=== PATIENT | male | born 1990 | race African-American/Black ===

== ENCOUNTER 2017-10-11 09:10 | Inpatient (IN) | payer OTHER ==
[2017-10-11 09:39] VITALS: BMI 35.2
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
[2017-10-11] MEDS ORDERED: ACETAMINOPHEN 325 MG TABLET (FP) PO PRN (11:58)
[2017-10-11] MEDS ORDERED: NICOTINE POLACRILEX 4 MG GUM BUC PRN (11:58)
[2017-10-11] MEDS ORDERED: guaiFENesin/D-METHORPHAN HB 10 ML UNIT-DOSE CUPS PO PRN (11:58)
[2017-10-11] MEDS ORDERED: P-EPHED 60MG/TRIPROLIDI 2.5MG TABLET PO PRN (11:58)
[2017-10-11] MEDS ORDERED: IBUPROFEN 400 MG TABLET (FP) PO PRN (11:58)
[2017-10-11] MEDS ORDERED: MENTHOL/PHENOL 1 EACH UD MM PRN (11:58)
[2017-10-11] MEDS ORDERED: hydrOXYzine PAMOATE 50 MG CAPSULE (FP) PO PRN (11:58)
[2017-10-11] MEDS ORDERED: MAG HYDROX/AL HYDROX/SIMETH 30 ML UNIT-DOSE CUP PO PRN (11:58)
[2017-10-11] MEDS ORDERED: LOPERAMIDE HCL 2 MG CAPSULE PO PRN (11:58)
[2017-10-11] MEDS ORDERED: MAGNESIUM CITRATE 300 ML BOTTLE PO PRN (11:58)
[2017-10-11] MEDS ORDERED: MAGNESIUM HYDROX 2400MG/30ML ORAL SUSPENSION 30 ML CUP PO PRN (11:58)
[2017-10-11] MEDS ORDERED: METHADONE HCL 10 MG TABLET (FOR DETOX USE ONLY) PO ONE ×2 (12:38→23:00)
[2017-10-11 17:30] LABS: URINE APPEARANCE CLEAR; URINE BILIRUBIN NEGATIVE (NEGATIVE); URINE BLOOD NEGATIVE (NEGATIVE); URINE COLOR YELLOW; URINE GLUCOSE (UA) NEGATIVE (NEGATIVE); URINE KETONE NEGATIVE (NEGATIVE); URINE LEUK ESTERASE NEGATIVE (NEGATIVE); URINE NITRITE NEGATIVE (NEGATIVE); URINE PROTEIN NEGATIVE (NEGATIVE); URINE UROBILINOGEN NEGATIVE mg/dL (0.2-1.0)
[2017-10-11] MEDS: THIAMINE HCL 100 MG TABLET (FP) PO SCH (22:40)
[2017-10-12] MEDS ORDERED: METHADONE HCL 5 MG TABLET (FOR DETOX USE ONLY) PO ONE (10:00)
[2017-10-12 10:11] LABS: HEMATOCRIT 41.5 % (35.4-49); HEMOGLOBIN 14.1 GM/dL (11.7-16.9); MCH 30.7 pg (25.7-33.7); MCHC 34.1 g/dl (32.0-35.9); MEAN CELL VOLUME 90.2 fl (80-96); MEAN PLT VOLUME 10.1 fl (7.5-11.1); PLATELET COUNT 241 K/MM3 (134-434); RDW 13.3 % (11.9-15.9)
[2017-10-12 10:17] LABS: CHLORIDE 103 mmol/L (98-107); POTASSIUM 3.8 mmol/L (3.5-5.1); SODIUM 139 mmol/L (136-145)
[2017-10-12] MEDS: NICOTINE 21 MG/24 HOURS TOPICAL PATCH TD SCH (10:20)
[2017-10-12] MEDS: PRENATAL VITAMINS W/ FOLIC ACID TABLET (FP) PO SCH (10:20)
--- NOTE | 2017-10-12 10:32 | EKG ---
Test Reason : Blood Pressure : / mmHG Vent. Rate : 072 BPM Atrial Rate : 072 BPM P-R Int : 136 ms QRS Dur : 088 ms QT Int : 382 ms P-R-T Axes : 075 069 -37 degrees QTc Int : 418 ms NORMAL SINUS RHYTHM NONSPECIFIC ST AND T WAVE ABNORMALITY ABNORMAL ECG NO PREVIOUS ECGS AVAILABLE Confirmed by ALDEN SANDHU MD ([id number]) on 10/12/2017 10:31:43 AM Referred By: Confirmed By:ALDEN SANDHU MD
[2017-10-12 10:34] LABS: ALBUMIN 4.3 g/dl (3.4-5.0); ALK PHOS 64 U/L (45-117); ANION GAP 9 (8-16); BILIRUBIN,TOTAL 0.7 mg/dL (0.2-1.0); BLOOD UREA NITROGEN 24 mg/dL (7-18); CALCIUM 8.5 mg/dL (8.5-10.1); CO2 27 mmol/L (21-32); CREATININE 0.9 mg/dL (0.7-1.3); GLUCOSE,RANDOM 117 mg/dL (74-106); SGOT/AST 28 U/L (15-37); SGPT/ALT 46 U/L (12-78); TOT PROT 7.7 g/dl (6.4-8.2)
--- NOTE | 2017-10-12 12:48 | PN ---
BHS COWS - Scale Resting Pulse: 0= [place] 80 or Below Sweatin= Chills/Flushing Restless Observation: 0= Sits Still Pupil Size: 0= Normal to Room Light Bone or Joint Aches: 2= Severe Diffuse Aches Runny Nose/ Eye Tearin= None GI Upset > 30mins: 1= Stomach Cramp Tremor Observation of Outstretched Hands: 2= Slight Tremor Visible Yawning Observation: 1= 1-2x During Session Anxiety or Irritability: 2=Irritable/Anxious Goose Flesh Skin: 3=Piloerection COWS Score: 12 BHS Progress Note (SOAP) Subjective: Sweating, Tremors, Body Aches, Interrupted Sleep. Objective: PATIENT A & O X 3, OBSERVED AMBULATING ON UNIT. NO ACUTE DISTRESS. 10/12/17 13:13 Vital Signs Temperature 98.4 F 10/12/17 09:28 Pulse Rate 58 L 10/12/17 09:28 Respiratory Rate 18 10/12/17 09:28 Blood Pressure 117/73 10/12/17 09:28 O2 Sat by Pulse Oximetry (%) Laboratory Tests 10/11/17 10/11/17 10/12/17 11:55 16:30 05:45 WBC 6.0 RBC 4.60 Hgb 14.1 Hct 41.5 MCV 90.2 MCH 30.7 MCHC 34.1 RDW 13.3 Plt Count 241 MPV 10.1 Sodium Potassium Chloride Carbon Dioxide Anion Gap BUN Creatinine Creat Clearance w eGFR Random Glucose Calcium Total Bilirubin AST ALT Alkaline Phosphatase Total Protein Albumin Urine Color Yellow Urine Appearance Clear Urine pH 6.0 Ur Specific [place] 1.027 Urine Protein Negative Urine Glucose (UA) Negative Urine Ketones Negative Urine Blood Negative Urine Nitrite Negative Urine Bilirubin Negative Urine Urobilinogen Negative Ur Leukocyte Esterase Negative HIV 1&2 Antibody Screen Negative HIV P24 Antigen Negative 10/12/17 05:45 WBC RBC Hgb Hct MCV MCH MCHC RDW Plt Count MPV Sodium 139 Potassium 3.8 Chloride 103 Carbon Dioxide 27 Anion Gap 9 BUN 24 H Creatinine 0.9 Creat Clearance w eGFR > 60 Random Glucose 117 H Calcium 8.5 Total Bilirubin 0.7 AST 28 ALT 46 Alkaline Phosphatase 64 Total Protein 7.7 Albumin 4.3 Urine Color Urine Appearance Urine pH Ur Specific [place] Urine Protein Urine Glucose (UA) Urine Ketones Urine Blood Urine Nitrite Urine Bilirubin Urine Urobilinogen Ur Leukocyte Esterase HIV 1&2 Antibody Screen HIV P24 Antigen LABS NOTED. RPR RESULT PENDING. 10/12/17 13:17 Assessment: 10/12/17 13:14 WITHDRAWAL SYMPTOMS. Plan: CONTINUE DETOX. INCREASE DAILY PO FLUID INTAKE.
[2017-10-12] MEDS: diazePAM 5 MG TABLET PO PRN (22:46)
[2017-10-12] MEDS: THIAMINE HCL 100 MG TABLET (FP) PO SCH (22:46)
[2017-10-13] MEDS ORDERED: METHADONE HCL 10 MG TABLET (FOR DETOX USE ONLY) PO ONE (10:00)
[2017-10-13] MEDS: NICOTINE 21 MG/24 HOURS TOPICAL PATCH TD SCH (10:30)
[2017-10-13] MEDS: PRENATAL VITAMINS W/ FOLIC ACID TABLET (FP) PO SCH (10:30)
--- NOTE | 2017-10-13 14:12 | PN ---
BHS COWS - Scale Resting Pulse: 0= MD 80 or Below Sweatin= Chills/Flushing Restless Observation: 1= Difficult to Sit Still Pupil Size: 0= Normal to Room Light Bone or Joint Aches: 1= Mild Discomfort Runny Nose/ Eye Tearin= None GI Upset > 30mins: 1= Stomach Cramp Tremor Observation of Outstretched Hands: 2= Slight Tremor Visible Yawning Observation: 2= >3x During Session Anxiety or Irritability: 2=Irritable/Anxious Goose Flesh Skin: 0=Smooth Skin COWS Score: 10 BHS Progress Note (SOAP) Subjective: Sweating, Tremors, Fatigue, Interrupted Sleep. Objective: PATIENT A & O X 3, OBSERVED AMBULATING ON UNIT. NO ACUTE DISTRESS. 10/13/17 14:11 Vital Signs Temperature 96.1 F L 10/13/17 13:46 Pulse Rate 62 10/13/17 13:46 Respiratory Rate 18 10/13/17 13:46 Blood Pressure 120/76 10/13/17 13:46 O2 Sat by Pulse Oximetry (%) Laboratory Tests 10/11/17 10/11/17 10/12/17 11:55 16:30 05:45 WBC 6.0 RBC 4.60 Hgb 14.1 Hct 41.5 MCV 90.2 MCH 30.7 MCHC 34.1 RDW 13.3 Plt Count 241 MPV 10.1 Sodium Potassium Chloride Carbon Dioxide Anion Gap BUN Creatinine Creat Clearance w eGFR Random Glucose Calcium Total Bilirubin AST ALT Alkaline Phosphatase Total Protein Albumin Urine Color Yellow Urine Appearance Clear Urine pH 6.0 Ur Specific [place] 1.027 Urine Protein Negative Urine Glucose (UA) Negative Urine Ketones Negative Urine Blood Negative Urine Nitrite Negative Urine Bilirubin Negative Urine Urobilinogen Negative Ur Leukocyte Esterase Negative RPR Titer HIV 1&2 Antibody Screen Negative HIV P24 Antigen Negative 10/12/17 10/12/17 05:45 05:45 WBC RBC Hgb Hct MCV MCH MCHC RDW Plt Count MPV Sodium 139 Potassium 3.8 Chloride 103 Carbon Dioxide 27 Anion Gap 9 BUN 24 H Creatinine 0.9 Creat Clearance w eGFR > 60 Random Glucose 117 H Calcium 8.5 Total Bilirubin 0.7 AST 28 ALT 46 Alkaline Phosphatase 64 Total Protein 7.7 Albumin 4.3 Urine Color Urine Appearance Urine pH Ur Specific [place] Urine Protein Urine Glucose (UA) Urine Ketones Urine Blood Urine Nitrite Urine Bilirubin Urine Urobilinogen Ur Leukocyte Esterase RPR Titer Nonreactive HIV 1&2 Antibody Screen HIV P24 Antigen LABS NOTED. Assessment: 10/13/17 14:11 WITHDRAWAL SYMPTOMS. Plan: CONTINUE DETOX. INCREASE DAILY PO FLUID INTAKE.
[2017-10-13] MEDS: THIAMINE HCL 100 MG TABLET (FP) PO SCH (22:22)
[2017-10-13] MEDS: diazePAM 5 MG TABLET PO PRN (22:23)
[2017-10-14] MEDS ORDERED: METHADONE HCL 5 MG TABLET (FOR DETOX USE ONLY) PO ONE (06:00)
[2017-10-14 06:21] VITALS: BP 130/70; PULSE 61; TEMP 96.7
--- NOTE | 2017-10-14 11:36 | DS ---
[facility] Detox Discharge Summary Admission Date: 10/11/17 - History Present History: Opioid Dependence Pertinent Past History: Denies - Physical Exam Results Vital Signs: Vital Signs Temperature 96.7 F L 10/14/17 06:20 Pulse Rate 61 10/14/17 06:20 Respiratory Rate 18 10/14/17 06:20 Blood Pressure 130/70 10/14/17 06:20 O2 Sat by Pulse Oximetry (%) Pertinent Admission Physical Exam Findings: Withdrawal symptoms Laboratory Tests 10/11/17 10/11/17 10/12/17 11:55 16:30 05:45 WBC 6.0 RBC 4.60 Hgb 14.1 Hct 41.5 MCV 90.2 MCH 30.7 MCHC 34.1 RDW 13.3 Plt Count 241 MPV 10.1 Sodium Potassium Chloride Carbon Dioxide Anion Gap BUN Creatinine Creat Clearance w eGFR Random Glucose Calcium Total Bilirubin AST ALT Alkaline Phosphatase Total Protein Albumin Urine Color Yellow Urine Appearance Clear Urine pH 6.0 Ur Specific [place] 1.027 Urine Protein Negative Urine Glucose (UA) Negative Urine Ketones Negative Urine Blood Negative Urine Nitrite Negative Urine Bilirubin Negative Urine Urobilinogen Negative Ur Leukocyte Esterase Negative RPR Titer HIV 1&2 Antibody Screen Negative HIV P24 Antigen Negative 10/12/17 10/12/17 05:45 05:45 WBC RBC Hgb Hct MCV MCH MCHC RDW Plt Count MPV Sodium 139 Potassium 3.8 Chloride 103 Carbon Dioxide 27 Anion Gap 9 BUN 24 H Creatinine 0.9 Creat Clearance w eGFR > 60 Random Glucose 117 H Calcium 8.5 Total Bilirubin 0.7 AST 28 ALT 46 Alkaline Phosphatase 64 Total Protein 7.7 Albumin 4.3 Urine Color Urine Appearance Urine pH Ur Specific [place] Urine Protein Urine Glucose (UA) Urine Ketones Urine Blood Urine Nitrite Urine Bilirubin Urine Urobilinogen Ur Leukocyte Esterase RPR Titer Nonreactive HIV 1&2 Antibody Screen HIV P24 Antigen Labs noted - Treatment Hospital Course: Detox Protocol Followed, Detoxed Safely, Responded well, Discharged Condition Good - Medication Discharge Medications: Ambulatory Orders NK [No Known Home Medication] 10/11/17 - Diagnosis (1) Nicotine dependence Status: Chronic Qualifiers: Nicotine product type: cigarettes Substance use status: uncomplicated Qualified Code(s): F17.210 - Nicotine dependence, cigarettes, uncomplicated (2) Opioid dependence with withdrawal Status: Acute - AMA Did Patient Leave Against Medical Advice: No (Follow up with your PCP in 1-2 weeks)
== END 2017-10-14 06:48 | disposition home or self-care (01) | DRG 773 ==
LOC: YASAS 09:10 → Y3N 12:09
PROVIDERS: ADMIT Internal Medicine; ATTEND Internal Medicine
PROC: HZ2ZZZZ Detoxification Services for Substance Abuse Treatment (ICD-10-PCS; principal; 2017-10-11)
DX: F11.23 Opioid dependence with withdrawal (principal); F17.210 Nicotine dependence, cigarettes, uncomplicated
CPT/HCPCS: 36415; 80053; 81003; 85027; 86593; 87389; 93005; 93010

== ENCOUNTER 2019-10-19 18:23 | Emergency (ER) | payer OTHER ==
[2019-10-19 18:31] VITALS: BP 123/81; PULSE 114; TEMP 98.8; BMI 30.7
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
[2019-10-19] MEDS ORDERED: ACETAMINOPHEN 500 MG TABLET (FP) PO ONE (19:25)
[2019-10-19] MEDS ORDERED: ACETAMINOPHEN 500 MG TABLET (FP) ONE (19:29)
[2019-10-19] MEDS ORDERED: IBUPROFEN 400 MG TABLET (FP) PO ONE ×2 (19:32→19:35)
== END 2019-10-19 19:41 | disposition home or self-care (01) ==
LOC: JERFT 18:23
DX: S20.212A Contusion of left front wall of thorax, initial encounter (principal); S00.03XA Contusion of scalp, initial encounter; S50.12XA Contusion of left forearm, initial encounter; Y04.2XXA Assault by strike against or bumped into by another person, initial encounter; Y93.89 Activity, other specified; Y92.89 Other specified places as the place of occurrence of the external cause
CPT/HCPCS: 70450-TC; 71101-TC-LT-FY; 73090-TC-LT-FY; 73110-TC-LT-FY; 99284-25

== ENCOUNTER 2019-11-02 13:19 | Emergency (ER) | payer OTHER ==
[2019-11-02 13:30] VITALS: BMI 33.5
[2019-11-02] MEDS ORDERED: SODIUM CHLORIDE 0.9% 500 ML INFUS.BAG IV ONE (14:00)
--- NOTE | 2019-11-02 14:38 | PDOC ---
Attending Attestation - Resident Resident Name: Jai Murphy - ED Attending Attestation I have performed the following: I have examined & evaluated the patient, The case was reviewed & discussed with the resident, I agree w/resident's findings & plan, Exceptions are as noted - HPI HPI: 11/07/19 16:10 29 years old type 2 diabetes with polyuria polydipsia. He has been incarcerated was supposed to take metformin but has not taken any medications has not followed up since being discharged. No fever no chills no belly pain no nausea no vomiting no diarrhea - Physicial Exam PE: 11/07/19 16:10 Vitals: Triage Vital signs reviewed General Appearance: No acute distress, well nourished well developed, Cardiac: Regular rate and rhythym, no murmurs, no rubs, no gallops, Lungs: Clear to auscultation bilateral, good air movement bilaterally, Abdomen: Soft, non distended, normal bowel sounds, non tender to palpation Extremities: Full range of motion to all extremities, no cyanosis, clubbing, or edema Skin: Warm and dry, no rashes or lesions, no rash, no petechiae Psych: Normal mood, normal affect - Medical Decision Making 11/07/19 16:10 Well-appearing no apparent distress no signs of DKA no anion gap feels better after IV fluids will restart metformin and have patient follow-up in clinic Findings, the need for follow-up and strict return instructions discussed with patient. 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 We have evaluated you and have found no emergency problems that need treatment. At home, eat a diet low in carbohydrates, stay hydrated with diet or low sugar drinks, and try to exercise and stay healthy. A referral to out clinic has been given to follow-up on your blood sugar and start on other medications as needed. We have sent a pre scription for metformin, please take it as instructed. Check your blood sugar in the morning, and aim for a level <200 throughout the day, but never let it drop below 60. If it does, eat something with sugar in it like juice or soda. If you experience fever, chills, nausea, vomiting, chest pain, difficulty breathing, abdominal pain, or any other new or concerning symptoms, please return to the emergency room. - Post Discharge Activity
[2019-11-02 14:44] LABS: BASO % 0.4 % (0-2.0); EOS % 2.2 % (0-4.5); HEMOGLOBIN 14.6 GM/dL (11.7-16.9); LYMPH % 23.9 % (8-40); MCH 29.6 pg (25.7-33.7); MCHC 33.8 g/dl (32.0-35.9); MEAN CELL VOLUME 87.4 fl (80-96); MEAN PLT VOLUME 10.8 fl (7.5-11.1); MONO % 7.2 % (3.8-10.2); NEUT % 66.3 % (42.8-82.8); PLATELET COUNT 185 K/MM3 (134-434); RBC 4.93 M/mm3 (4.00-5.60); RDW 12.9 % (11.9-15.9); WHITE BLOOD COUNT 6.4 K/mm3 (4.0-10.0)
--- NOTE | 2019-11-02 14:44 | PDOC ---
History of Present Illness - General Chief Complaint: Blood Sugar Problem Stated Complaint: DIAB Time Seen by Provider: 11/02/19 13:34 History Source: Patient Exam Limitations: No Limitations - History of Present Illness Initial Comments: 11/02/19 14:39 Hari Rg is a 29M with PMH recently diagnosed T2DM presenting with hyperglycemia. Denies any covid-19 exposures or sick contacts, diligently isolating himself and wearing PPE. Patient was previously incarcerated 8 months ago, was seen by health staff in [facility] and diagnosed with T2DM, started on metformin. Once released from [facility], told he did not need to take metformin any more. Has not followed up with any primary doctor, but checks he BGM at home and has glucose ~90s normally. Today took BGM and machine said it was too high to read, came to ED. Reports polyuria, polydipsia, increased thirst, blurry vision changes, but no neuropathy. Denies hematuria or dysuria. Denies fever, chills, N/V/C/D, chest pain, SOB, abdominal pain, dizziness. Last at a pizza last night, nothing today. Ambulatory without issues. NKDA No other PSH Smokes 0.5 ppd, denies alcohol/drugs Past History - Past Medical History Allergies/Adverse Reactions: Allergies Allergy/AdvReac Type Severity Reaction Status Date / Time No Known Allergies Allergy Verified 11/02/19 13:28 Home Medications: Ambulatory Orders metFORMIN HCL [Metformin HCl] 500 mg PO BID #60 tablet 11/02/19 Anemia: No Asthma: No Cancer: No Cardiac Disorders: No CVA: No COPD: No CHF: No Dementia: No Diabetes: No GI Disorders: No Disorders: No HTN: No Hypercholesterolemia: No Kidney Stones: No Liver Disease: No Seizures: No Thyroid Disease: No - Surgical History Abdominal Surgery: No Appendectomy: No Cardiac Surgery: No Cholecystectomy: No Lung Surgery: No Neurologic Surgery: No Orthopedic Surgery: No - Reproductive History Testicular Surgery: No - Psycho Social/Smoking Cessation Hx Smoking History: Current every day smoker Have you smoked in the past 12 months: Yes Number of Cigarettes Smoked Daily: 10 Information on smoking cessation initiated: No 'Breaking Loose' booklet given: 10/11/17 Drug/Substance Use Hx: Yes Substance Use Type: Opiates Hx Substance Use Treatment: No Review of Systems - Review of Systems Able to Perform ROS?: Yes Constitutional: No: Symptoms Reported HEENTM: Yes: Recent change in vision Respiratory: No: Symptoms reported Cardiac (ROS): No: Symptoms Reported ABD/GI: No: Symptoms Reported : Yes: Frequency. No: Burning, Dysuria, Discharge, Flank Pain, Hematuria, Incontinence, Pain, Urgency Musculoskeletal: No: Symptoms Reported Integumentary: No: Symptoms Reported Neurological: No: Symptoms reported Endocrine: No: Symptoms Reported Hematologic/Lymphatic: No: Symptoms Reported All Other Systems: Reviewed and Negative *Physical Exam - Vital Signs Last Vital Signs Temp Pulse Resp BP Pulse Ox 98.5 F 77 18 120/74 98 11/02/19 13:25 11/02/19 13:25 11/02/19 13:25 11/02/19 13:25 11/02/19 13:25 - Physical Exam General Appearance: Yes: Nourished, Appropriately Dressed, Obese. No: Apparent Distress HEENT: positive: EOMI, LAKESHA, Normal Voice, Symmetrical, Pharynx Normal, Hearing Grossly Normal. negative: Scleral Icterus (R), Scleral Icterus (L), Pharyngeal Erythema, Tonsillar Exudate, Tonsillar Erythema Neck: positive: Trachea midline, Normal Thyroid, Supple. negative: Tender, Rigid, Decreased range of motion, Lymphadenopathy (R), Lymphadenopathy (L) Respiratory/Chest: positive: Lungs Clear, Normal Breath Sounds. negative: Chest Tender, Respiratory Distress, Accessory Muscle Use, Labored Respiration, Crackles, Rales, Rhonchi, Stridor, Wheezing Cardiovascular: positive: Regular Rhythm, Regular Rate. negative: Murmur Gastrointestinal/Abdominal: positive: Normal Bowel Sounds, Flat, Soft. negative: Tender, Organomegaly, Pulsatile Mass, Guarding, Rebound Musculoskeletal: positive: Normal Inspection. negative: CVA Tenderness, Decreased Range of Motion, Muscle Spasm Extremity: positive: Normal Capillary Refill, Normal Inspection, Normal Range of Motion, Pelvis Stable. negative: Tender, Swelling, Calf Tenderness Integumentary: positive: Normal Color, Dry, Warm Neurologic: positive: Fully Oriented, Alert, Normal Mood/Affect, Normal Response ED Treatment Course - LABORATORY CBC & Chemistry Diagram: 11/02/19 14:30 11/02/19 13:59 - ADDITIONAL ORDERS Additional order review: Laboratory Results 11/02/19 13:56 POC Glucometer 560 11/02/19 13:56 POC Glucometer 560 - Medications Given in the ED: ED Medications Discontinued Medications Generic Name Dose Route Start Last Admin Trade Name Gm PRN Reason Stop Dose Admin Sodium Chloride 1,000 ml 11/02/19 14:00 11/02/19 14:26 Normal Saline - IV 11/02/19 14:01 1,000 ml ONCE ONE Administration Medical Decision Making - Medical Decision Making 11/02/19 14:45 Patient reports classic symptoms of T2DM but is otherwise asymptomatic, no fever/chills, no abd pain, no N/V, no cough or SOB, no symptoms concerning for DKA. ED BGM 560. Getting labs, UA, and giving 1L NS. - CMP/CBC for eval AGAP and infection - Betahydroxybuyrate for eval DKA ketosis - Coags for eval bleeding status - ECG for eval heart rhythm - 1L NS for correction of glucose Appears well, will likely merit discharge with metformin and clinic f/u. 11/02/19 14:56 ECG shows NSR with HR 77, QRS 86, QTc 400 with deep Q waves, non-specific TWI in II, III, no other concerning ischemic changes. 11/02/19 15:06 Labs remarkable for: - CBC WNL - Coags WNL - UA 3+ glucose, no UTI or blood - CMP no AGAP, glu 565 - beta low No suspicion of DKA, patient asymptomatic, needs f/u in clinic for T2DM but can be safely discharged home. Metformin script sent. 11/02/19 16:01 Repeat BGM 400s, decreasing. Discharge - Discharge Information Problems reviewed: Yes Clinical Impression/Diagnosis: Hyperglycemia due to type 2 diabetes mellitus Qualifiers: Diabetes mellitus manager long term care insulin use: without long-term use Qualified Code(s): E11.65 - Type 2 diabetes mellitus with hyperglycemia Condition: Stable Disposition: HOME - Additional Discharge Information Prescriptions: metFORMIN HCL [Metformin HCl] 500 mg PO BID #60 tablet - Follow up/Referral Referrals: [facility] [Provider Group] - Patient Discharge Instructions Patient Printed Discharge Instructions: DI for Diabetes Type 2 Additional Instructions: Today you were evaluated for high blood sugar. We have evaluated you and have found no emergency problems that need treatment. At home, eat a diet low in carbohydrates, stay hydrated with diet or low sugar drinks, and try to exercise and stay healthy. A referral to out clinic has been given to follow-up on your blood sugar and start on other medications as needed. We have sent a prescription for metformin, please take it as instructed. Check your blood sugar in the morning, and aim for a level <200 throughout the day, but never let it drop below 60. If it does, eat something with sugar in it like juice or soda. If you experience fever, chills, nausea, vomiting, chest pain, difficulty breathing, abdominal pain, or any other new or concerning symptoms, please return to the emergency room. - Post Discharge Activity
[2019-11-02 14:47] LABS: VENOUS PC02 55.1 mmHg (38-52); VENOUS PH 7.36 (7.31-7.41); VENOUS PO2 52.8 mmHg (28-48)
[2019-11-02 14:50] LABS: INR 0.92 (0.83-1.09); PROTHROMBIN TIME (PATIENT) 10.8 SEC (9.7-13.0)
[2019-11-02 14:52] LABS: ACTIVATED PTT 29.2 SECONDS (25.2-36.5); URINE APPEARANCE CLEAR; URINE BILIRUBIN NEGATIVE (NEGATIVE); URINE COLOR YELLOW; URINE GLUCOSE (UA) 3+ (NEGATIVE); URINE KETONE NEGATIVE (NEGATIVE); URINE LEUK ESTERASE NEGATIVE (NEGATIVE); URINE NITRITE NEGATIVE (NEGATIVE); URINE PROTEIN NEGATIVE (NEGATIVE); URINE UROBILINOGEN 0.2 mg/dL (0.2-1.0)
[2019-11-02 15:15] LABS: ALBUMIN 4.1 g/dl (3.4-5.0); BILIRUBIN,TOTAL 0.7 mg/dL (0.2-1); CALCIUM 9.2 mg/dL (8.5-10.1); CREATININE 0.9 mg/dL (0.55-1.3); POTASSIUM 4.2 mmol/L (3.5-5.1); TOT PROT 7.6 g/dl (6.4-8.2)
[2019-11-02 15:36] VITALS: BP 126/80; PULSE 66; TEMP 98.6
--- NOTE | 2019-11-03 09:48 | EKG ---
Test Reason : Blood Pressure : / mmHG Vent. Rate : 077 BPM Atrial Rate : 077 BPM P-R Int : 130 ms QRS Dur : 086 ms QT Int : 354 ms P-R-T Axes : 072 062 -07 degrees QTc Int : 400 ms NORMAL SINUS RHYTHM NONSPECIFIC T WAVE ABNORMALITY ABNORMAL ECG WHEN COMPARED WITH ECG OF 11-OCT-2017 14:31, NO SIGNIFICANT CHANGE WAS FOUND Confirmed by Harvinder Lauren ([id number]) on 11/03/2019 9:47:50 AM Referred By: Confirmed By:Harvinder Lauren
== END 2019-11-02 16:44 | disposition home or self-care (01) ==
LOC: JER 13:19
DX: E11.65 Type 2 diabetes mellitus with hyperglycemia (principal); Z79.84 Long term (current) use of oral hypoglycemic drugs; F17.210 Nicotine dependence, cigarettes, uncomplicated
CPT/HCPCS: 36415; 80053; 81003; 82010; 82803; 82962; 85025; 85610; 85730; 87086; 93005; 93010; 99284-25

== ENCOUNTER 2020-03-15 15:40 | Inpatient (IN) | payer OTHER ==
[2020-03-15 19:15] VITALS: BMI 29.2
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
[2020-03-15] MEDS ORDERED: NICOTINE POLACRILEX 2 MG GUM BUC PRN (19:49)
[2020-03-15] MEDS ORDERED: BISMUTH SUBSALICYLATE 524 MG/30 ML UD PO PRN (19:49)
[2020-03-15] MEDS ORDERED: METHADONE HCL 10 MG TABLET (FOR DETOX USE ONLY) PO ONE ×2 (19:49→23:00)
[2020-03-15] MEDS ORDERED: ONDANSETRON *ODT* 4 MG TABLET SL PRN (19:49)
[2020-03-15] MEDS ORDERED: cloNIDine HCL 0.1 MG TABLET PO PRN ×2 (19:49→21:14)
[2020-03-15] MEDS ORDERED: MAGNESIUM CITRATE 300 ML BOTTLE PO PRN (19:49)
[2020-03-15] MEDS ORDERED: MENTHOL/PHENOL 1 EACH UD MM PRN (19:49)
[2020-03-15] MEDS ORDERED: METHOCARBAMOL 500 MG TABLET PO PRN (19:49)
[2020-03-15] MEDS ORDERED: MAG HYDROX/AL HYDROX/SIMETH 30 ML UNIT-DOSE CUP PO PRN (19:49)
[2020-03-15] MEDS ORDERED: IBUPROFEN 400 MG TABLET (FP) PO PRN (19:49)
[2020-03-15] MEDS ORDERED: MAGNESIUM HYDROX 2400MG/30ML ORAL SUSPENSION 30 ML CUP PO PRN (19:49)
[2020-03-15] MEDS ORDERED: ACETAMINOPHEN 325 MG TABLET (FP) PO PRN ×2 (19:49)
[2020-03-15] MEDS ORDERED: NICOTINE 14 MG/24 HOURS TOPICAL PATCH TD SCH (20:00)
[2020-03-15] MEDS ORDERED: hydrOXYzine PAMOATE 25 MG CAPSULE (FP) PO PRN (20:06)
--- NOTE | 2020-03-15 20:53 | PN ---
Teaching Attending Note Name of Resident: Jacky Hooks ATTENDING PHYSICIAN STATEMENT I saw and evaluated the patient. I reviewed the resident's note and discussed the case with the resident. I agree with the resident's findings and plan as documented. SUBJECTIVE:29 year old male requesting detox from Percocet use, reports relapse since 3 months ago , states using 3 -10 tabs /day of 10 mg each , denies withdrawal symptoms " I never had to go without , so I don't know what it's like " . States he was sent by parole . Detox at this facility in 2018 . PMH: diabetes mellitus II dx 2019 , non- compliant w/ meds . OBJECTIVE: wnwd , anxious Vital Signs - 24 hr 03/15/20 03/15/20 19:14 20:34 Temperature 96.7 F L 96.7 F L Pulse Rate 83 83 Respiratory 18 18 Rate Blood Pressure 127/76 127/76 ASSESSMENT AND PLAN: OUD - Methadone detox.
[2020-03-15] MEDS ORDERED: hydrOXYzine PAMOATE 25 MG CAPSULE (FP) PO SCH (22:00)
[2020-03-15] MEDS ORDERED: MELATONIN 5 MG TABLETS PO SCH (22:00)
[2020-03-15] MEDS ORDERED: TUBERCULIN PPD 5 TU/0.1ML VIAL ID ONE (22:01)
[2020-03-15] MEDS: INSULIN SLIDING SCALE (NOVOLOG) 1 VIAL SQ SCH (22:09)
[2020-03-15] MEDS: metFORMIN HCL 500 MG TABLET (FP) PO SCH (22:10)
[2020-03-15] MEDS: THIAMINE HCL 100 MG TABLET (FP) PO SCH (22:11)
[2020-03-15] MEDS: MELATONIN 5 MG TABLETS PO PRN (22:11)
[2020-03-16] MEDS: metFORMIN HCL 500 MG TABLET (FP) PO SCH ×2 (06:35→16:48)
[2020-03-16] MEDS ORDERED: metFORMIN HCL 500 MG TABLET (FP) PO SCH (07:00)
[2020-03-16] MEDS ORDERED: INSULIN (NOVOLOG) ASPART 100 UNITS/ML 10ML VIAL ONE ×3 (08:33→16:48)
[2020-03-16] MEDS: INSULIN SLIDING SCALE (NOVOLOG) 1 VIAL SQ SCH ×4 (08:42→21:51)
[2020-03-16] MEDS ORDERED: METHADONE HCL 5 MG TABLET (FOR DETOX USE ONLY) PO ONE (10:00)
[2020-03-16] MEDS ORDERED: METHADONE (DETOX) 20 MG, METHADONE (DETOX) 5 MG PO ONE (10:00)
[2020-03-16] MEDS: PRENATAL VITAMINS W/ FOLIC ACID TABLET (FP) PO SCH (10:20)
[2020-03-16 10:38] LABS: HEMATOCRIT 38.2 % (35.4-49); HEMOGLOBIN 12.6 GM/dL (11.7-16.9); MCH 29.5 pg (25.7-33.7); MEAN CELL VOLUME 89.2 fl (80-96); MEAN PLT VOLUME 10.7 fl (7.5-11.1); PLATELET COUNT 186 K/MM3 (134-434); RBC 4.28 M/mm3 (4.00-5.60); RDW 12.6 % (11.9-15.9); WHITE BLOOD COUNT 6.6 K/mm3 (4.0-10.0)
[2020-03-16 10:50] LABS: ALBUMIN 3.3 g/dl (3.4-5.0); BILIRUBIN,TOTAL 1.2 mg/dL (0.2-1); BLOOD UREA NITROGEN 12.1 mg/dL (7-18); CALCIUM 8.9 mg/dL (8.5-10.1); CREATININE 0.8 mg/dL (0.55-1.3); POTASSIUM 3.8 mmol/L (3.5-5.1); TOT PROT 6.1 g/dl (6.4-8.2)
--- NOTE | 2020-03-16 12:45 | PN ---
BHS COWS - Scale Resting Pulse: 0= [place] 80 or Below Sweatin=Flushed/Facial Moisture Restless Observation: 0= Sits Still Pupil Size: 0= Normal to Room Light Bone or Joint Aches: 0= None Runny Nose/ Eye Tearin= None GI Upset > 30mins: 0= None Tremor Observation of Outstretched Hands: 0= None Yawning Observation: 0= None Anxiety or Irritability: 0= None Goose Flesh Skin: 0=Smooth Skin COWS Score: 2 BHS Progress Note (SOAP) Subjective: Pt is a 29 y/o male admitted to detox for heroin withdrawal sx. On Methadone taper and reports medication effectiveness. Saw pt in bed and he reports "i feel fine" slight anxiety/chills Objective: 03/16/20 12:46 Vital Signs - 24 hr 03/15/20 03/15/20 03/15/20 19:14 20:34 21:24 Temperature 96.7 F L 96.7 F L 97.7 F Pulse Rate 83 83 80 Respiratory 18 18 18 Rate Blood Pressure 127/76 127/76 137/74 O2 Sat by Pulse 97 Oximetry (%) 03/16/20 06:08 Temperature 97.7 F Pulse Rate 67 Respiratory 18 Rate Blood Pressure 125/67 O2 Sat by Pulse 96 Oximetry (%) Laboratory Tests 03/15/20 03/15/20 03/16/20 22:03 23:17 06:35 WBC RBC Hgb Hct MCV MCH MCHC RDW Plt Count MPV Sodium Potassium Chloride Carbon Dioxide Anion Gap BUN Creatinine Est GFR (CKD-EPI)AfAm Est GFR (CKD-EPI)NonAf POC Glucometer > 600 415 392 Random Glucose Calcium Total Bilirubin AST ALT Alkaline Phosphatase Total Protein Albumin Syphilis Serology 03/16/20 03/16/20 03/16/20 08:00 08:00 08:00 WBC 6.6 RBC 4.28 Hgb 12.6 Hct 38.2 MCV 89.2 MCH 29.5 MCHC 33.0 RDW 12.6 Plt Count 186 MPV 10.7 Sodium 134 L Potassium 3.8 Chloride 97 L Carbon Dioxide 30 Anion Gap 7 L BUN 12.1 Creatinine 0.8 Est GFR (CKD-EPI)AfAm 139.91 Est GFR (CKD-EPI)NonAf 120.72 POC Glucometer Random Glucose 434 H* Calcium 8.9 Total Bilirubin 1.2 H AST 6 L ALT 19 Alkaline Phosphatase 108 Total Protein 6.1 L Albumin 3.3 L Syphilis Serology Non-reactive 03/16/20 11:45 WBC RBC Hgb Hct MCV MCH MCHC RDW Plt Count MPV Sodium Potassium Chloride Carbon Dioxide Anion Gap BUN Creatinine Est GFR (CKD-EPI)AfAm Est GFR (CKD-EPI)NonAf POC Glucometer 372 Random Glucose Calcium Total Bilirubin AST ALT Alkaline Phosphatase Total Protein Albumin Syphilis Serology Glc- uncontrolled DM covid-19 result pending alert o x 3 nad seen in bed and communicated needs coherently Assessment: 03/16/20 12:48 withdrawal sx uncontrolled DM Plan: continue detox increase po fluids maintain safety
[2020-03-16] MEDS: MELATONIN 5 MG TABLETS PO PRN (21:50)
[2020-03-16] MEDS: THIAMINE HCL 100 MG TABLET (FP) PO SCH (21:50)
[2020-03-17] MEDS: metFORMIN HCL 500 MG TABLET (FP) PO SCH ×2 (06:24→16:51)
[2020-03-17] MEDS ORDERED: INSULIN (NOVOLOG) ASPART 100 UNITS/ML 10ML VIAL ONE ×3 (08:30→16:42)
[2020-03-17] MEDS: INSULIN SLIDING SCALE (NOVOLOG) 1 VIAL SQ SCH ×4 (08:34→22:14)
[2020-03-17] MEDS ORDERED: METHADONE HCL 10 MG TABLET (FOR DETOX USE ONLY) PO ONE ×2 (10:00)
[2020-03-17] MEDS: PRENATAL VITAMINS W/ FOLIC ACID TABLET (FP) PO SCH (10:15)
--- NOTE | 2020-03-17 14:04 | PN ---
BHS COWS - Scale Resting Pulse: 0= NE 80 or Below Sweatin= Chills/Flushing Restless Observation: 3= Extraneous Movement Pupil Size: 0= Normal to Room Light Bone or Joint Aches: 1= Mild Discomfort Runny Nose/ Eye Tearin= None GI Upset > 30mins: 0= None Tremor Observation of Outstretched Hands: 1= Tremor Ute, Not Seen Yawning Observation: 1= 1-2x During Session Anxiety or Irritability: 2=Irritable/Anxious Goose Flesh Skin: 0=Smooth Skin COWS Score: 9 BHS Progress Note (SOAP) Subjective: Pt concerned about withdrawal sx after detox. Explained to pt the need to be connected to CD aftercare and remain sober. c/o anxiety fatigue difficulty sleeping , Melatonin 5 mg not effective. Requesting an increase. Objective: 03/17/20 14:28 Vital Signs - 24 hr 03/16/20 03/16/20 03/17/20 17:05 20:40 05:54 Temperature 97.3 F L 97.7 F 98.2 F Pulse Rate 63 67 61 Respiratory 16 18 18 Rate Blood Pressure 117/71 118/69 107/63 O2 Sat by Pulse 97 94 L Oximetry (%) Laboratory Tests 03/15/20 03/15/20 03/15/20 20:50 22:03 23:17 WBC RBC Hgb Hct MCV MCH MCHC RDW Plt Count MPV Sodium Potassium Chloride Carbon Dioxide Anion Gap BUN Creatinine Est GFR (CKD-EPI)AfAm Est GFR (CKD-EPI)NonAf POC Glucometer > 600 415 Random Glucose Calcium Total Bilirubin AST ALT Alkaline Phosphatase Total Protein Albumin Syphilis Serology COVID-19 (RESHMA) Not detected 03/16/20 03/16/20 03/16/20 06:35 08:00 08:00 WBC 6.6 RBC 4.28 Hgb 12.6 Hct 38.2 MCV 89.2 MCH 29.5 MCHC 33.0 RDW 12.6 Plt Count 186 MPV 10.7 Sodium Potassium Chloride Carbon Dioxide Anion Gap BUN Creatinine Est GFR (CKD-EPI)AfAm Est GFR (CKD-EPI)NonAf POC Glucometer 392 Random Glucose Calcium Total Bilirubin AST ALT Alkaline Phosphatase Total Protein Albumin Syphilis Serology Non-reactive COVID-19 (RESHMA) 03/16/20 03/16/20 03/16/20 08:00 11:45 16:46 WBC RBC Hgb Hct MCV MCH MCHC RDW Plt Count MPV Sodium 134 L Potassium 3.8 Chloride 97 L Carbon Dioxide 30 Anion Gap 7 L BUN 12.1 Creatinine 0.8 Est GFR (CKD-EPI)AfAm 139.91 Est GFR (CKD-EPI)NonAf 120.72 POC Glucometer 372 431 Random Glucose 434 H* Calcium 8.9 Total Bilirubin 1.2 H AST 6 L ALT 19 Alkaline Phosphatase 108 Total Protein 6.1 L Albumin 3.3 L Syphilis Serology COVID-19 (RESHMA) 03/16/20 03/17/20 03/17/20 21:48 06:23 11:12 WBC RBC Hgb Hct MCV MCH MCHC RDW Plt Count MPV Sodium Potassium Chloride Carbon Dioxide Anion Gap BUN Creatinine Est GFR (CKD-EPI)AfAm Est GFR (CKD-EPI)NonAf POC Glucometer 340 330 418 Random Glucose Calcium Total Bilirubin AST ALT Alkaline Phosphatase Total Protein Albumin Syphilis Serology COVID-19 (RESHMA) Assessment: 03/17/20 14:28 withdrawal sx Plan: cont detox increase po fluids maintain safety HgbA1C tomorrow Pt reports he has no primary care and would like to follow up at [facility] for medical management after CD treatment.
[2020-03-17 20:34] LABS: URINE APPEARANCE CLEAR; URINE BILIRUBIN NEGATIVE (NEGATIVE); URINE COLOR YELLOW; URINE GLUCOSE (UA) 3+ (NEGATIVE); URINE KETONE NEGATIVE (NEGATIVE); URINE LEUK ESTERASE NEGATIVE (NEGATIVE); URINE NITRITE NEGATIVE (NEGATIVE); URINE PROTEIN NEGATIVE (NEGATIVE); URINE UROBILINOGEN 0.2 mg/dL (0.2-1.0)
[2020-03-17] MEDS: THIAMINE HCL 100 MG TABLET (FP) PO SCH (22:11)
[2020-03-17] MEDS: MELATONIN 5 MG TABLETS PO PRN (22:12)
[2020-03-18] MEDS ORDERED: METHADONE HCL 5 MG TABLET (FOR DETOX USE ONLY) PO ONE (06:00)
[2020-03-18] MEDS: metFORMIN HCL 500 MG TABLET (FP) PO SCH ×2 (06:52→16:58)
[2020-03-18] MEDS ORDERED: INSULIN (NOVOLOG) ASPART 100 UNITS/ML 10ML VIAL ONE ×3 (08:36→16:58)
[2020-03-18] MEDS: INSULIN SLIDING SCALE (NOVOLOG) 1 VIAL SQ SCH ×4 (08:36→22:02)
[2020-03-18] MEDS ORDERED: METHADONE (DETOX) 10 MG, METHADONE (DETOX) 5 MG PO ONE (10:00)
[2020-03-18] MEDS: PRENATAL VITAMINS W/ FOLIC ACID TABLET (FP) PO SCH (10:49)
[2020-03-18] MEDS ORDERED: MELATONIN 5 MG TABLETS PO PRN (11:08)
[2020-03-18] MEDS ORDERED: MINERAL OIL/PETROLAT/WATER TOPICAL CREAM 113 GM JAR TP SCH (11:15)
--- NOTE | 2020-03-18 11:17 | PN ---
BHS COWS - Scale Resting Pulse: 0= [place] 80 or Below Sweatin= Chills/Flushing Restless Observation: 3= Extraneous Movement Pupil Size: 0= Normal to Room Light Bone or Joint Aches: 1= Mild Discomfort Runny Nose/ Eye Tearin= None GI Upset > 30mins: 0= None Tremor Observation of Outstretched Hands: 0= None Yawning Observation: 1= 1-2x During Session Anxiety or Irritability: 0= None Goose Flesh Skin: 0=Smooth Skin COWS Score: 6 BHS Progress Note (SOAP) Subjective: c/o anxiety,slightly restless. Received last dose of Methadone 5 mg po today Objective: 03/18/20 11:21 Vital Signs - 24 hr 03/17/20 03/17/20 03/18/20 16:45 20:15 06:06 Temperature 97.5 F L 97.1 F L 97.8 F Pulse Rate 70 67 66 Respiratory 18 18 18 Rate Blood Pressure 113/60 122/82 133/73 O2 Sat by Pulse 97 97 Oximetry (%) Assessment: 03/18/20 11:21 mild withdrawal sx Plan: cont detox d/c pt in [facility] if medically stable pt reports he has a program he attends and going back to [employer] in [place] and works in [place]. Pt has been encouraged and referred to follow up with [facility] on [address] [place] [address] for medical management of New onset DM. pt states he lives here in [place] and would prefer to come to the clinic in this building. This adjusto writer operator tried to call the clinic today but unable to speak with anyone. The phone number and address has been written and given to the patient to call and follow up after discharge. Pt reports was diagnosed 3 months ago when he went to the hospital and was put on Metformin there but does not have a current primary care provider.
[2020-03-18] MEDS: HYDROCORTISONE 1% TOPICAL CREAM 30 GM TUBE TP SCH ×2 (13:38→22:01)
[2020-03-18] MEDS: BACITRACIN 0.9 GM PACKET TP SCH ×2 (13:38→22:01)
[2020-03-18 21:12] VITALS: BP 118/64; PULSE 66; TEMP 97.3
--- NOTE | 2020-03-18 21:35 | DS ---
[facility] Detox Discharge Summary Admission Date: 03/15/20 Discharge Date: 03/18/20 - History Additional Comments: Patient is scheduled for discharge in the morning but wants to leave at this time. Patient is alert and oriented x 3, not in acute withdrawal, ambulates independently and vital signs stable. Patient is medically stable to go home. He reports that he will follow up with his PCP for his diabetic management. Discharge instructions done and discharge was completed in 30 minutes Pertinent Past History: Opioid withdrawal symptoms - Physical Exam Results Vital Signs: Vital Signs Temperature 97.3 F L 03/18/20 21:11 Pulse Rate 66 03/18/20 21:11 Respiratory Rate 18 03/18/20 21:11 Blood Pressure 118/64 03/18/20 21:11 O2 Sat by Pulse Oximetry (%) 97 03/18/20 21:11 Laboratory Last Values WBC 6.6 K/mm3 (4.0-10.0) 03/16/20 08:00 RBC 4.28 M/mm3 (4.00-5.60) 03/16/20 08:00 Hgb 12.6 GM/dL (11.7-16.9) 03/16/20 08:00 Hct 38.2 % (35.4-49) 03/16/20 08:00 MCV 89.2 fl (80-96) 03/16/20 08:00 MCH 29.5 pg (25.7-33.7) 03/16/20 08:00 MCHC 33.0 g/dl (32.0-35.9) 03/16/20 08:00 RDW 12.6 % (11.9-15.9) 03/16/20 08:00 Plt Count 186 K/MM3 (134-434) 03/16/20 08:00 MPV 10.7 fl (7.5-11.1) 03/16/20 08:00 Sodium 134 mmol/L (136-145) L 03/16/20 08:00 Potassium 3.8 mmol/L (3.5-5.1) 03/16/20 08:00 Chloride 97 mmol/L (98-107) L 03/16/20 08:00 Carbon Dioxide 30 mmol/L (21-32) 03/16/20 08:00 Anion Gap 7 MMOL/L (8-16) L 03/16/20 08:00 BUN 12.1 mg/dL (7-18) 03/16/20 08:00 Creatinine 0.8 mg/dL (0.55-1.3) 03/16/20 08:00 Est GFR (CKD-EPI)AfAm 139.91 03/16/20 08:00 Est GFR (CKD-EPI)NonAf 120.72 03/16/20 08:00 POC Glucometer 314 UNITS (80-120) 03/18/20 16:56 Random Glucose 434 mg/dL (74-106) H* 03/16/20 08:00 Hemoglobin A1c % 15.7 % (4.2-6.3) H 03/18/20 08:05 Calcium 8.9 mg/dL (8.5-10.1) 03/16/20 08:00 Total Bilirubin 1.2 mg/dL (0.2-1) H 03/16/20 08:00 AST 6 U/L (15-37) L 03/16/20 08:00 ALT 19 U/L (13-61) 03/16/20 08:00 Alkaline Phosphatase 108 U/L (45-117) 03/16/20 08:00 Total Protein 6.1 g/dl (6.4-8.2) L 03/16/20 08:00 Albumin 3.3 g/dl (3.4-5.0) L 03/16/20 08:00 Urine Color Yellow 03/17/20 18:30 Urine Appearance Clear 03/17/20 18:30 Urine pH 5.0 (5.0-8.0) 03/17/20 18:30 Ur Specific [place] 1.043 (1.010-1.035) H 03/17/20 18:30 Urine Protein Negative (NEGATIVE) 03/17/20 18:30 Urine Glucose (UA) 3+ (NEGATIVE) H 03/17/20 18:30 Urine Ketones Negative (NEGATIVE) 03/17/20 18:30 Urine Blood Negative (NEGATIVE) 03/17/20 18:30 Urine Nitrite Negative (NEGATIVE) 03/17/20 18:30 Urine Bilirubin Negative (NEGATIVE) 03/17/20 18:30 Urine Urobilinogen 0.2 mg/dL (0.2-1.0) 03/17/20 18:30 Ur Leukocyte Esterase Negative (NEGATIVE) 03/17/20 18:30 Syphilis Serology Non-reactive (NONREACTIVE) 03/16/20 08:00 COVID-19 (RESHMA) Not detected (Not Detected) 03/15/20 20:50 Labs reviewed with patient Pertinent Admission Physical Exam Findings: Opioid dependence Nicotine dependence Diabetes Mellitus - Medication Discharge Medications: Ambulatory Orders metFORMIN HCL [Metformin HCl] 500 mg PO BID #60 tablet 03/18/20 - Diagnosis (1) Opioid dependence with withdrawal Current Visit: Yes Status: Chronic (2) Nicotine dependence Current Visit: Yes Status: Chronic Qualifiers: Nicotine product type: cigarettes Substance use status: uncomplicated Qualified Code(s): F17.210 - Nicotine dependence, cigarettes, uncomplicated (3) Diabetes mellitus Current Visit: Yes Status: Chronic Qualifiers: Diabetes mellitus type: type 2 - AMA Did Patient Leave Against Medical Advice: No
[2020-03-18] MEDS: THIAMINE HCL 100 MG TABLET (FP) PO SCH (22:02)
[2020-03-19] MEDS ORDERED: METHADONE HCL 10 MG TABLET (FOR DETOX USE ONLY) PO ONE (10:00)
[2020-03-20] MEDS ORDERED: METHADONE HCL 5 MG TABLET (FOR DETOX USE ONLY) PO ONE (06:00)
== END 2020-03-18 21:50 | disposition home or self-care (01) | DRG 773 ==
LOC: YASAS 15:40 → Y5N DETOX 20:32
PROVIDERS: ADMIT Allergy & Immunology; ATTEND Allergy & Immunology
PROC: HZ2ZZZZ Detoxification Services for Substance Abuse Treatment (ICD-10-PCS; principal; 2020-03-15)
DX: F11.23 Opioid dependence with withdrawal (principal); F17.210 Nicotine dependence, cigarettes, uncomplicated; E11.65 Type 2 diabetes mellitus with hyperglycemia; R21 Rash and other nonspecific skin eruption; Z91.14 Patient's other noncompliance with medication regimen; Z79.84 Long term (current) use of oral hypoglycemic drugs
CPT/HCPCS: 36415; 80053; 81003; 82962; 83036; 85027; 86780; J0735; U0003

== ENCOUNTER 2020-07-26 17:47 | Emergency (ER) | payer OTHER ==
[2020-07-26 18:03] VITALS: BP 130/82; PULSE 86; TEMP 97
== END 2020-07-26 18:37 | disposition home or self-care (01) ==
LOC: JER 17:47
DX: U07.1 COVID-19 (principal)
CPT/HCPCS: 99283-25; C9803; U0003

== ENCOUNTER 2021-06-15 20:36 | Emergency (ER) | payer OTHER ==
[2021-06-15 20:46] VITALS: TEMP 98.2; BMI 29.8
[2021-06-15 21:23] LABS: PH,URINE 5.5 (5.0-8.0); URINE APPEARANCE CLEAR; URINE BILIRUBIN NEGATIVE (NEGATIVE); URINE COLOR YELLOW; URINE KETONE NEGATIVE (NEGATIVE); URINE LEUK ESTERASE NEGATIVE (NEGATIVE); URINE NITRITE NEGATIVE (NEGATIVE); URINE PROTEIN NEGATIVE (NEGATIVE); URINE UROBILINOGEN 0.2 mg/dL (0.2-1.0)
[2021-06-15] MEDS ORDERED: LACTATED RINGERS SOLUTION 1000 ML INFUS.BAG IV ONE (21:43)
[2021-06-15 22:02] LABS: VENOUS BASE EXCESS -0.6 mmol/L (-2-2); VENOUS O2 SATURATION 76.9 % (70-80); VENOUS PCO2 49.4 mmHg (38-52); VENOUS PH 7.338 (7.310-7.410)
[2021-06-15 22:04] LABS: BASO % 0.5 % (0-2.0); EOS % 1.5 % (0-4.5); HEMATOCRIT 42.2 % (35.4-49); HEMOGLOBIN 14.5 GM/dL (11.7-16.9); LYMPH % 41.8 % (8-40); MCHC 34.3 g/dl (32.0-35.9); MEAN CELL VOLUME 84.6 fl (80-96); MEAN PLT VOLUME 9.7 fl (7.5-11.1); MONO % 6.4 % (3.8-10.2); NEUT % 49.8 % (42.8-82.8); PLATELET COUNT 232 10^3/uL (134-434); RBC 4.99 M/mm3 (4.00-5.60); RDW 12.8 % (11.9-15.9); WHITE BLOOD COUNT 6.1 K/mm3 (4.0-10.0)
[2021-06-15 22:21] LABS: CHLORIDE 94 mmol/L (98-107); SODIUM 131 mmol/L (136-145)
[2021-06-15 22:23] LABS: CALCIUM 9.2 mg/dL (8.5-10.1)
[2021-06-15 22:25] LABS: ALBUMIN 4.2 g/dl (3.4-5.0); ANION GAP 8 MMOL/L (8-16); BLOOD UREA NITROGEN 11.2 mg/dL (7-18); CO2 29 mmol/L (21-32); MAGNESIUM 2.2 mg/dL (1.8-2.4)
[2021-06-15 22:27] LABS: CREATININE 0.9 mg/dL (0.55-1.3); PHOSPHOROUS 4.4 mg/dL (2.5-4.9); SGOT/AST 14 U/L (15-37); SGPT/ALT 20 U/L (13-61)
[2021-06-15 22:29] LABS: BILIRUBIN,TOTAL 0.5 mg/dL (0.2-1); TOT PROT 7.7 g/dl (6.4-8.2)
[2021-06-15 22:31] LABS: ALK PHOS 124 U/L (45-117)
[2021-06-15 22:35] LABS: GLUCOSE,RANDOM 489 mg/dL (74-106)
[2021-06-15 23:36] VITALS: BP 120/80; PULSE 74
[2021-06-15] MEDS ORDERED: metFORMIN HCL 500 MG TABLET (FP) PO ONE (23:58)
[2021-06-16] MEDS ORDERED: metFORMIN HCL 500 MG TABLET (FP) ONE (00:05)
== END 2021-06-16 00:38 | disposition home or self-care (01) ==
LOC: JER 20:36
DX: E11.65 Type 2 diabetes mellitus with hyperglycemia (principal)
CPT/HCPCS: 36415; 71045-TC-FY; 80053; 81003; 82010; 82803; 82962; 83735; 84100; 85025; 87086; 93005; 93010; 99284-25

== ENCOUNTER 2023-02-01 11:54 | Emergency (ER) | payer OTHER ==
[2023-02-01 12:29] VITALS: BP 134/91; PULSE 99; RESP 20; TEMP 97.8; BMI 30.7
[2023-02-01] MEDS ORDERED: CEPHALEXIN MONOHYDRATE 500 MG CAPSULE (UD) PO ONE (13:05)
[2023-02-01] MEDS ORDERED: SULFAMETHOXAZOLE/TRIMETHOPRIM 800MG/160MG D.S. TABLET PO ONE (13:05)
[2023-02-01] MEDS ORDERED: SULFAMETHOXAZOLE/TRIMETHOPRIM 800MG/160MG D.S. TABLET ONE (13:29)
[2023-02-01] MEDS ORDERED: CEPHALEXIN MONOHYDRATE 500 MG CAPSULE (UD) ONE (13:29)
[2023-02-01 13:32] LABS: BASO % 0.1 % (0-2.0); EOS % 1.6 % (0-4.5); HEMATOCRIT 38.7 % (35.4-49); HEMOGLOBIN 12.9 GM/dL (11.7-16.9); LYMPH % 22.7 % (8-40); MCH 28.1 pg (25.7-33.7); MCHC 33.2 g/dl (32.0-35.9); MEAN CELL VOLUME 84.5 fl (80-96); MEAN PLT VOLUME 9.1 fl (7.5-11.1); MONO % 7.8 % (3.8-10.2); NEUT % 67.8 % (42.8-82.8); PLATELET COUNT 284 10^3/uL (134-434); RBC 4.58 M/mm3 (4.00-5.60); RDW 12.6 % (11.9-15.9); WHITE BLOOD COUNT 7.2 K/mm3 (4.0-10.0)
[2023-02-01 14:06] LABS: POTASSIUM 4.3 mmol/L (3.5-5.1)
[2023-02-01 14:08] LABS: CALCIUM 9.3 mg/dL (8.5-10.1)
[2023-02-01 14:09] LABS: ALBUMIN 3.8 g/dl (3.4-5.0); BLOOD UREA NITROGEN 14.6 mg/dL (7-18)
[2023-02-01 14:12] LABS: CREATININE 0.7 mg/dL (0.55-1.3)
[2023-02-01 14:14] LABS: BILIRUBIN,TOTAL 0.5 mg/dL (0.2-1); TOT PROT 7.3 g/dl (6.4-8.2)
[2023-02-01 14:21] LABS: ERYTHROCYTE SEDIMENTATION RATE 43 mm/hr (0-10)
== END 2023-02-01 15:03 | disposition home or self-care (01) ==
LOC: JER 11:54
DX: E13.621 Other specified diabetes mellitus with foot ulcer (principal); L97.519 Non-pressure chronic ulcer of other part of right foot with unspecified severity
CPT/HCPCS: 36415; 73630-TC-RT-FY; 80053; 82962; 85025; 85651; 86140; 99284-25

== ENCOUNTER 2023-02-13 15:17 | Inpatient (IN) | payer OTHER ==
[2023-02-13 17:20] LABS: HEMATOCRIT 36.8 % (35.4-49); HEMOGLOBIN 12.5 GM/dL (11.7-16.9); MCH 27.7 pg (25.7-33.7); MEAN CELL VOLUME 81.6 fl (80-96); MEAN PLT VOLUME 8.3 fl (7.5-11.1); PLATELET COUNT 267 10^3/uL (134-434); RBC 4.51 M/mm3 (4.00-5.60); RDW 12.2 % (11.9-15.9); WHITE BLOOD COUNT 2.8 K/mm3 (4.0-10.0)
[2023-02-13 17:40] LABS: POTASSIUM 4.8 mmol/L (3.5-5.1)
[2023-02-13 17:42] LABS: ALBUMIN 3.6 g/dl (3.4-5.0); CALCIUM 9.3 mg/dL (8.5-10.1)
[2023-02-13 17:45] LABS: CREATININE 0.8 mg/dL (0.55-1.3)
[2023-02-13 17:47] LABS: BILIRUBIN,TOTAL 0.2 mg/dL (0.2-1); TOT PROT 7.7 g/dl (6.4-8.2)
[2023-02-13 18:09] LABS: ERYTHROCYTE SEDIMENTATION RATE 58 mm/hr (0-10)
[2023-02-13] MEDS: ACETAMINOPHEN 325 MG TABLET (FP) PO PRN (21:05)
[2023-02-14 01:59] VITALS: BMI 27.3
[2023-02-14] MEDS: ACETAMINOPHEN 325 MG TABLET (FP) PO PRN (02:05)
[2023-02-14] MEDS: INSULIN SLIDING SCALE (NOVOLOG) 1 VIAL SQ SCH ×3 (06:35→17:48)
[2023-02-14 09:01] LABS: HEMATOCRIT 36.9 % (35.4-49); HEMOGLOBIN 12.1 GM/dL (11.7-16.9); MCH 27.2 pg (25.7-33.7); MCHC 32.8 g/dl (32.0-35.9); PLATELET COUNT 256 10^3/uL (134-434); RBC 4.44 M/mm3 (4.00-5.60); RDW 12.1 % (11.9-15.9); WHITE BLOOD COUNT 2.5 K/mm3 (4.0-10.0)
[2023-02-14 09:12] LABS: POTASSIUM 4.1 mmol/L (3.5-5.1)
[2023-02-14 09:14] LABS: CALCIUM 8.9 mg/dL (8.5-10.1)
[2023-02-14 09:15] LABS: ALBUMIN 3.2 g/dl (3.4-5.0); BLOOD UREA NITROGEN 14.6 mg/dL (7-18)
[2023-02-14 09:17] LABS: CREATININE 0.8 mg/dL (0.55-1.3)
[2023-02-14 09:19] LABS: BILIRUBIN,TOTAL 0.2 mg/dL (0.2-1); TOT PROT 7.2 g/dl (6.4-8.2)
[2023-02-14] MEDS: ENOXAPARIN NA (PORCINE) 40 MG/0.4 ML DISP.SYRIN SQ SCH (11:09)
[2023-02-14] MEDS ORDERED: INSULIN (NOVOLOG) ASPART 100 UNITS/ML 10ML VIAL ONE ×3 (12:03→17:44)
[2023-02-14] MEDS ORDERED: LORazepam 1 MG TABLET PO PRN (14:18)
[2023-02-14] MEDS: PIPERACILLIN/TAZOB 3.375 GM 3.375 GM in DEXTROSE 5%-WATER - 50 ML IVPB SCH ×2 (14:32→18:13)
[2023-02-14] MEDS ORDERED: oxyCODONE HCL 5 MG TABLET PO PRN (14:32)
[2023-02-14] MEDS: NICOTINE 21 MG/24 HOURS TOPICAL PATCH TD SCH (14:33)
[2023-02-14 15:57] LABS: EPI CELLS >36 /uL (0-25.1); HYALINE CASTS 2 /uL (0-3.1); URINE APPEARANCE CLEAR; URINE BACTERIA 21 /uL (0-1359); URINE BILIRUBIN NEGATIVE (NEGATIVE); URINE COLOR YELLOW; URINE GLUCOSE (UA) 2+ (NEGATIVE); URINE KETONE NEGATIVE (NEGATIVE); URINE LEUK ESTERASE NEGATIVE (NEGATIVE); URINE NITRITE NEGATIVE (NEGATIVE); URINE PROTEIN 2+ (NEGATIVE); URINE RBC 28 /uL (0-23.9); URINE WBC 22 /uL (0-25.8)
[2023-02-14 16:08] LABS: METHADONE, UR NEGATIVE (NEGATIVE); PHENCYCLIDINE,URINE NEGATIVE (NEGATIVE); URINE BENZODIAZEPINES NEGATIVE (NEGATIVE)
[2023-02-14 16:09] LABS: URINE BARBITURATES NEGATIVE (NEGATIVE)
[2023-02-14 16:29] LABS: COCAINE, UR POSITIVE (NEGATIVE); OPIATES, URI POSITIVE (NEGATIVE); URINE AMPHETAMINES NEGATIVE (NEGATIVE)
[2023-02-14] MEDS ORDERED: IBUPROFEN 400 MG TABLET (FP) PO PRN (16:37)
[2023-02-14] MEDS ORDERED: ONDANSETRON *ODT* 4 MG TABLET SL PRN (16:37)
[2023-02-14] MEDS ORDERED: METHOCARBAMOL 500 MG TABLET PO PRN (16:37)
[2023-02-14] MEDS ORDERED: NALOXONE HCL (KLOXXADO) 8 MG SPRAY NS PRN (16:37)
[2023-02-14] MEDS ORDERED: MAG HYDROX/AL HYDROX/SIMETH 30 ML UNIT-DOSE CUP PO PRN (16:37)
[2023-02-14] MEDS ORDERED: IBUPROFEN 600 MG TABLET (FP) PO PRN (16:37)
[2023-02-14] MEDS: oxyCODONE HCL 5 MG TABLET PO PRN ×2 (16:37→21:22)
[2023-02-14] MEDS ORDERED: guaiFENesin 600 MG TABLET.ER (FP) PO PRN (16:37)
[2023-02-14] MEDS ORDERED: LOPERAMIDE HCL 2 MG CAPSULE PO PRN (16:37)
[2023-02-14] MEDS ORDERED: NALOXONE HCL 0.4 MG/ML VIAL IM PRN (16:37)
[2023-02-14] MEDS ORDERED: BENZOCAINE/MENTHOL (CHLORASEPTIC ) LOZENGE MM PRN (16:37)
[2023-02-14] MEDS ORDERED: hydrOXYzine PAMOATE 25 MG CAPSULE (FP) PO PRN (16:37)
[2023-02-14] MEDS ORDERED: POLYETHYLENE GLYCOL (HEALTHYLAX) 3350 17 GM PACKET PO PRN (16:37)
[2023-02-14] MEDS ORDERED: BISMUTH SUBSALICYLATE 524 MG/30 ML PO PRN (16:37)
[2023-02-14] MEDS ORDERED: BENZONATATE 200 MG CAPSULE PO PRN (16:37)
[2023-02-14] MEDS ORDERED: MAGNESIUM HYDROX 2400MG/30ML ORAL SUSPENSION 30 ML CUP PO PRN (16:37)
[2023-02-14] MEDS ORDERED: DICYCLOMINE HCL 10 MG CAPSULE PO PRN (16:37)
[2023-02-14] MEDS: MINERAL OIL/PET HY-PHL TOPICAL OINTMENT 454 GM JAR TP SCH ×2 (16:38→21:31)
[2023-02-14] MEDS: COLLAGENASE CLOSTRIDIUM HIST. 30 GRAMS TUBE TP SCH (16:38)
[2023-02-14 21:33] VITALS: RESP 16
[2023-02-14] MEDS ORDERED: THIAMINE HCL 100 MG TABLET (FP) PO SCH (22:00)
[2023-02-14] MEDS ORDERED: MELATONIN 5 MG TABLETS PO SCH (22:00)
[2023-02-14] MEDS ORDERED: INSULIN (LEVEMIR) 100 UNITS/ML UNITS SQ SCH (22:00)
[2023-02-15] MEDS: PIPERACILLIN/TAZOB 3.375 GM 3.375 GM in DEXTROSE 5%-WATER - 50 ML IVPB SCH ×2 (01:52→09:40)
[2023-02-15 05:57] VITALS: BP 130/77; PULSE 71; TEMP 98.4
[2023-02-15] MEDS: INSULIN SLIDING SCALE (NOVOLOG) 1 VIAL SQ SCH ×2 (06:56→11:52)
[2023-02-15] MEDS ORDERED: INSULIN (LEVEMIR) 100 UNITS/ML UNITS SQ SCH (07:00)
[2023-02-15] MEDS: ENOXAPARIN NA (PORCINE) 40 MG/0.4 ML DISP.SYRIN SQ SCH (09:40)
[2023-02-15] MEDS: NICOTINE 21 MG/24 HOURS TOPICAL PATCH TD SCH (09:40)
[2023-02-15] MEDS: MINERAL OIL/PET HY-PHL TOPICAL OINTMENT 454 GM JAR TP SCH (09:41)
[2023-02-15] MEDS: COLLAGENASE CLOSTRIDIUM HIST. 30 GRAMS TUBE TP SCH (09:41)
[2023-02-15] MEDS ORDERED: LISINOPRIL 5 MG TABLET PO SCH (10:00)
[2023-02-15] MEDS ORDERED: PRENATAL VITAMINS W/ FOLIC ACID TABLET (FP) PO SCH (10:00)
[2023-02-15 10:22] LABS: HEMATOCRIT 37.1 % (35.4-49); HEMOGLOBIN 12.3 GM/dL (11.7-16.9); MCH 27.7 pg (25.7-33.7); MCHC 33.2 g/dl (32.0-35.9); MEAN CELL VOLUME 83.4 fl (80-96); MEAN PLT VOLUME 9.2 fl (7.5-11.1); PLATELET COUNT 262 10^3/uL (134-434); RBC 4.45 M/mm3 (4.00-5.60); RDW 12.3 % (11.9-15.9)
[2023-02-15 10:57] LABS: ANISOCYTOSIS 0; HELMET CELLS 0; HOWELL-JOLLY BODIES 0; MACROCYTOSIS 0; OVALOCYTE 0; ROULEAU 0; SICKELED CELLS 0; TARGET CELLS 0; TEAR DROP CELLS 0; TOXIC GRANULATION 0
[2023-02-15 11:10] LABS: POTASSIUM 4.2 mmol/L (3.5-5.1)
[2023-02-15 11:25] LABS: ALBUMIN 3.4 g/dl (3.4-5.0); BLOOD UREA NITROGEN 18.7 mg/dL (7-18); MAGNESIUM 2.3 mg/dL (1.8-2.4)
[2023-02-15 11:28] LABS: CREATININE 0.8 mg/dL (0.55-1.3)
[2023-02-15 11:30] LABS: BILIRUBIN,TOTAL 0.1 mg/dL (0.2-1); TOT PROT 7.2 g/dl (6.4-8.2)
[2023-02-15] MEDS ORDERED: INSULIN (NOVOLOG) ASPART 100 UNITS/ML 10ML VIAL ONE (11:49)
[2023-02-15] MEDS ORDERED: AMINO ACIDS/PROTEIN HYDROLYS 30 ML LIQUID.PKT PO SCH (17:30)
== END 2023-02-15 14:25 | disposition left against medical advice (07) | DRG 344 ==
LOC: JER 15:17 → JERBED 18:18 → J8W 21:58
PROVIDERS: ADMIT Internal Medicine; ATTEND Nurse Practitioner Family
DX: E11.69 Type 2 diabetes mellitus with other specified complication (principal); M86.8X7 Other osteomyelitis, ankle and foot; L97.509 Non-pressure chronic ulcer of other part of unspecified foot with unspecified severity; E11.65 Type 2 diabetes mellitus with hyperglycemia; F11.10 Opioid abuse, uncomplicated; F17.210 Nicotine dependence, cigarettes, uncomplicated; E11.40 Type 2 diabetes mellitus with diabetic neuropathy, unspecified; E11.621 Type 2 diabetes mellitus with foot ulcer
CPT/HCPCS: 36415; 71046-TC-FY; 73630-TC-RT-FY; 73718-TC-RT; 80053; 80061; 80307; 81003; 82962; 83036; 83735; 85025; 85027; 85651; 86140; 87635; 93005; 93010; 93971-TC; 99285-25

== ENCOUNTER 2023-05-08 18:21 | Day surgery (SDC) | payer OTHER ==
[2023-05-08] MEDS ORDERED: CEFTRIAXONE 2 GM in DEXTROSE 5%-WATER 100 ML IVPB ONE (18:45)
[2023-05-08 19:26] VITALS: BP 122/85; PULSE 86; RESP 17; TEMP 98.4
== END 2023-05-08 19:25 | disposition home or self-care (01) ==
LOC: FINFUSION 18:21 → FM/S 18:21 → FINFUSION 19:25
PROVIDERS: ATTEND Internal Medicine Infectious Disease
DX: M86.9 Osteomyelitis, unspecified (principal)
CPT/HCPCS: 96365

== ENCOUNTER 2023-05-14 17:38 | Day surgery (SDC) | payer OTHER ==
[2023-05-14] MEDS ORDERED: CEFTRIAXONE 2 GM in DEXTROSE 5%-WATER 100 ML IVPB SCH (18:00)
[2023-05-14 18:46] VITALS: BP 127/64; PULSE 67; RESP 18; TEMP 98.1
== END 2023-05-14 18:48 | disposition home or self-care (01) ==
LOC: FINFUSION 17:38 → FM/S 17:39 → FINFUSION 18:48
PROVIDERS: ATTEND Internal Medicine Infectious Disease
DX: M86.9 Osteomyelitis, unspecified (principal)
CPT/HCPCS: 96365

== ENCOUNTER 2023-05-16 10:35 | Day surgery (SDC) | payer OTHER ==
[2023-05-16] MEDS ORDERED: CEFTRIAXONE 2 GM in SODIUM CHLORIDE 100 ML IVPB ONE (11:00)
[2023-05-16 11:39] VITALS: BP 119/70; PULSE 72; RESP 18; TEMP 98.3
== END 2023-05-16 11:39 | disposition home or self-care (01) ==
LOC: FM/S 10:35 → FINFUSION 10:35
PROVIDERS: ATTEND Internal Medicine Infectious Disease
DX: M86.9 Osteomyelitis, unspecified (principal)
CPT/HCPCS: 96365

== ENCOUNTER 2023-05-17 18:25 | Day surgery (SDC) | payer OTHER ==
[2023-05-17] MEDS ORDERED: CEFTRIAXONE 2 GM in SODIUM CHLORIDE 100 ML IVPB ONE (18:45)
[2023-05-17 19:24] VITALS: BP 119/70; PULSE 89; RESP 18; TEMP 98.8
== END 2023-05-17 19:24 | disposition home or self-care (01) ==
LOC: FINFUSION 18:25 → FM/S 18:27 → FINFUSION 19:24
PROVIDERS: ATTEND Internal Medicine Infectious Disease
DX: M86.9 Osteomyelitis, unspecified (principal)
CPT/HCPCS: 96365

== ENCOUNTER 2023-05-18 18:28 | Day surgery (SDC) | payer OTHER ==
[2023-05-18] MEDS ORDERED: CEFTRIAXONE 2 GM in SODIUM CHLORIDE 100 ML IVPB ONE (18:45)
[2023-05-18 19:03] VITALS: BP 136/78; PULSE 87; RESP 16; TEMP 98.3
== END 2023-05-18 19:03 | disposition home or self-care (01) ==
LOC: FINFUSION 18:28 → FM/S 18:28 → FINFUSION 19:03
PROVIDERS: ATTEND Internal Medicine Infectious Disease
DX: M86.9 Osteomyelitis, unspecified (principal)
CPT/HCPCS: 96365

== ENCOUNTER 2023-05-23 15:22 | Day surgery (SDC) | payer OTHER ==
[2023-05-23] MEDS ORDERED: CEFTRIAXONE 2 GM in DEXTROSE 5%-WATER 100 ML IVPB ONE (15:45)
[2023-05-23 17:23] VITALS: BP 112/68; PULSE 76; TEMP 97.7
[2023-05-23 17:25] VITALS: RESP 17
== END 2023-05-23 16:18 | disposition home or self-care (01) ==
LOC: FINFUSION 15:22 → FM/S 15:23 → FINFUSION 16:18
PROVIDERS: ATTEND Internal Medicine Infectious Disease
DX: M86.9 Osteomyelitis, unspecified (principal)
CPT/HCPCS: 96365

== ENCOUNTER 2023-05-24 18:58 | Day surgery (SDC) | payer OTHER ==
[2023-05-24] MEDS ORDERED: CEFTRIAXONE 2 GM in DEXTROSE 5%-WATER 100 ML IVPB ONE (19:15)
[2023-05-24 19:22] VITALS: RESP 16; TEMP 98.7
[2023-05-24 19:56] VITALS: BP 116/62; PULSE 82
== END 2023-05-25 07:49 | disposition home or self-care (01) ==
LOC: FINFUSION 18:58 → FM/S 18:59 → FINFUSION 05-25 07:49
PROVIDERS: ATTEND Internal Medicine Infectious Disease
DX: M86.9 Osteomyelitis, unspecified (principal)
CPT/HCPCS: 96365

== ENCOUNTER 2023-05-28 17:09 | Inpatient (IN) | payer OTHER ==
[2023-05-28 17:17] VITALS: BMI 30.7
[2023-05-28] MEDS ORDERED: VANCOMYCIN 1,000 MG in DEXTROSE 5%-WATER - 250 ML IVPB ONE (18:01)
[2023-05-28] MEDS ORDERED: PIPERACILLIN/TAZOB 4.5 GM 4.5 GM in DEXTROSE 5%-WATER 100 ML IVPB ONE (18:01)
[2023-05-28] MEDS ORDERED: PIPERACILLIN/TAZOB 4.5 GM 4.5 GM/100 ML BAG IVPB ONE (18:33)
[2023-05-28] MEDS ORDERED: VANCOMYCIN 1 GRAM (PRE-DOCKED) 1,000 MG/250 ML BAG IVPB ONE (18:34)
[2023-05-28 18:47] LABS: BASO % 0.2 % (0-2.0); EOS % 3.6 % (0-4.5); HEMATOCRIT 38.8 % (35.4-49); HEMOGLOBIN 13.6 GM/dL (11.7-16.9); LYMPH % 49.8 % (8-40); MCH 29.1 pg (25.7-33.7); MCHC 35.1 g/dl (32.0-35.9); MEAN CELL VOLUME 82.8 fl (80-96); MEAN PLT VOLUME 8.8 fl (7.5-11.1); MONO % 5.6 % (3.8-10.2); NEUT % 40.8 % (42.8-82.8); PLATELET COUNT 303 10^3/uL (134-434); RBC 4.68 M/mm3 (4.00-5.60); RDW 13.7 % (11.9-15.9); WHITE BLOOD COUNT 7.4 K/mm3 (4.0-10.0)
[2023-05-28 19:13] LABS: POTASSIUM 4.4 mmol/L (3.5-5.1)
[2023-05-28 19:15] LABS: ALBUMIN 4.2 g/dl (3.4-5.0); BLOOD UREA NITROGEN 17.2 mg/dL (7-18); CALCIUM 9.2 mg/dL (8.5-10.1)
[2023-05-28 19:18] LABS: CREATININE 0.7 mg/dL (0.55-1.3)
[2023-05-28 19:20] LABS: BILIRUBIN,TOTAL 0.2 mg/dL (0.2-1); TOT PROT 8.1 g/dl (6.4-8.2)
[2023-05-29] MEDS: INSULIN (LEVEMIR) 100 UNITS/ML UNITS SQ SCH ×2 (00:30→21:33)
[2023-05-29] MEDS: SODIUM CHLORIDE 1,000 ML IV SCH (01:13)
[2023-05-29] MEDS: CEFTRIAXONE 2 GM in DEXTROSE 5%-WATER 100 ML IVPB SCH (09:53)
[2023-05-29] MEDS ORDERED: CEFTRIAXONE 2 MG in DEXTROSE 5%-WATER - 50 ML IVPB SCH (10:00)
[2023-05-29 10:16] LABS: HEMATOCRIT 36.2 % (35.4-49); HEMOGLOBIN 12.4 GM/dL (11.7-16.9); MCH 28.4 pg (25.7-33.7); MCHC 34.2 g/dl (32.0-35.9); MEAN PLT VOLUME 8.6 fl (7.5-11.1); PLATELET COUNT 265 10^3/uL (134-434); RBC 4.36 M/mm3 (4.00-5.60); RDW 13.7 % (11.9-15.9); WHITE BLOOD COUNT 4.8 K/mm3 (4.0-10.0)
[2023-05-29 10:18] LABS: INR 0.99 (0.83-1.09); PROTHROMBIN TIME (PATIENT) 11.5 SEC (9.7-13.0)
[2023-05-29 10:20] LABS: ACTIVATED PTT 30.8 SECONDS (25.2-36.5)
[2023-05-29 12:20] LABS: POTASSIUM 4.3 mmol/L (3.5-5.1)
[2023-05-29 12:26] LABS: ALBUMIN 3.5 g/dl (3.4-5.0); CALCIUM 8.3 mg/dL (8.5-10.1)
[2023-05-29 12:27] LABS: BLOOD UREA NITROGEN 18.4 mg/dL (7-18); MAGNESIUM 2.1 mg/dL (1.8-2.4)
[2023-05-29 12:29] LABS: CREATININE 0.7 mg/dL (0.55-1.3); PHOSPHOROUS 4.5 mg/dL (2.5-4.9)
[2023-05-29 12:31] LABS: BILIRUBIN,TOTAL 0.5 mg/dL (0.2-1); TOT PROT 6.7 g/dl (6.4-8.2)
[2023-05-29] MEDS ORDERED: INSULIN (NOVOLOG) ASPART 100 UNITS/ML 10ML VIAL ONE ×2 (17:07→19:29)
[2023-05-29] MEDS: INSULIN SLIDING SCALE (NOVOLOG) 1 VIAL SQ SCH ×2 (17:19→21:33)
[2023-05-30] MEDS ORDERED: INSULIN (NOVOLOG) ASPART 100 UNITS/ML 10ML VIAL ONE ×3 (06:47→22:13)
[2023-05-30] MEDS: INSULIN SLIDING SCALE (NOVOLOG) 1 VIAL SQ SCH ×4 (06:47→22:20)
[2023-05-30] MEDS: SODIUM CHLORIDE 1,000 ML IV SCH (06:49)
[2023-05-30 09:55] LABS: BASO % 0.4 % (0-2.0); EOS % 4.9 % (0-4.5); HEMATOCRIT 35.9 % (35.4-49); LYMPH % 48.9 % (8-40); MCH 28.1 pg (25.7-33.7); MCHC 33.3 g/dl (32.0-35.9); MEAN CELL VOLUME 84.4 fl (80-96); MEAN PLT VOLUME 8.9 fl (7.5-11.1); MONO % 7.1 % (3.8-10.2); NEUT % 38.7 % (42.8-82.8); PLATELET COUNT 255 10^3/uL (134-434); RBC 4.26 M/mm3 (4.00-5.60); RDW 13.7 % (11.9-15.9); WHITE BLOOD COUNT 4.7 K/mm3 (4.0-10.0)
[2023-05-30 10:07] LABS: PROTHROMBIN TIME (PATIENT) 11.6 SEC (9.7-13.0)
[2023-05-30 10:12] LABS: POTASSIUM 4.2 mmol/L (3.5-5.1)
[2023-05-30 10:25] LABS: CREATININE 0.6 mg/dL (0.55-1.3)
[2023-05-30 10:26] LABS: MAGNESIUM 1.9 mg/dL (1.8-2.4)
[2023-05-30 10:27] LABS: TOT PROT 6.7 g/dl (6.4-8.2)
[2023-05-30 10:28] LABS: ALBUMIN 3.5 g/dl (3.4-5.0); BILIRUBIN,TOTAL 0.2 mg/dL (0.2-1); BLOOD UREA NITROGEN 18.2 mg/dL (7-18); CALCIUM 8.7 mg/dL (8.5-10.1)
[2023-05-30] MEDS: CEFTRIAXONE 2 GM in DEXTROSE 5%-WATER 100 ML IVPB SCH (10:36)
[2023-05-30] MEDS: INSULIN (LEVEMIR) 100 UNITS/ML UNITS SQ SCH (22:20)
[2023-05-31] MEDS ORDERED: INSULIN (NOVOLOG) ASPART 100 UNITS/ML 10ML VIAL ONE ×2 (06:25→22:44)
[2023-05-31] MEDS: INSULIN SLIDING SCALE (NOVOLOG) 1 VIAL SQ SCH ×4 (06:28→22:34)
[2023-05-31] MEDS ORDERED: GENTAMICIN SO4 80 MG/2 ML VIAL ONE ×2 (07:16→07:45)
[2023-05-31] MEDS ORDERED: BUPIVACAINE HCL/PF 0.5% (5MG/ML) 10 ML VIAL ONE (07:16)
[2023-05-31] MEDS ORDERED: LIDOCAINE HCL 1%, 10 MG/ML (20ML VIAL) ONE (07:16)
[2023-05-31] MEDS ORDERED: PROPOFOL 20 ML ONE (07:40)
[2023-05-31] MEDS ORDERED: FENTANYL CITRATE/PF 50 MCG/ML VIAL ONE ×2 (07:41→07:57)
[2023-05-31] MEDS ORDERED: MIDAZOLAM HCL 2 MG/2 ML SINGLE DOSE VIAL ONE (07:41)
[2023-05-31] MEDS ORDERED: LIDOCAINE HCL 1%, 10 MG/ML (20ML VIAL) NR ONE ×2 (07:48)
[2023-05-31] MEDS ORDERED: BUPIVACAINE HCL/PF 0.5% (5MG/ML) 10 ML VIAL NR ONE ×2 (07:48)
[2023-05-31] MEDS ORDERED: VANCOMYCIN 1,000 MG VIAL (RESTRICTED TO ID ONLY) ONE (07:48)
[2023-05-31] MEDS ORDERED: ONDANSETRON 4 MG/2 ML VIAL ONE (07:56)
[2023-05-31] MEDS ORDERED: GENTAMICIN SO4 80 MG/2 ML VIAL IVPB ONE (08:10)
[2023-05-31] MEDS ORDERED: VANCOMYCIN 1,000 MG VIAL (RESTRICTED TO ID ONLY) IVPB ONE (08:10)
[2023-05-31] MEDS ORDERED: ONDANSETRON 4 MG/2 ML VIAL IVPUSH PRN ×2 (08:35→08:41)
[2023-05-31] MEDS ORDERED: IBUPROFEN 800 MG/8 ML IJ IVPB PRN ×3 (08:35→15:09)
[2023-05-31] MEDS: SODIUM CHLORIDE 1,000 ML IV SCH ×2 (08:45→19:50)
[2023-05-31] MEDS ORDERED: SODIUM CHLORIDE 1,000 ML IV SCH (08:45)
[2023-05-31] MEDS: CEFTRIAXONE 2 GM in DEXTROSE 5%-WATER 100 ML IVPB SCH (09:17)
[2023-05-31 13:47] LABS: BASO % 0.2 % (0-2.0); EOS % 3.7 % (0-4.5); HEMATOCRIT 37.4 % (35.4-49); HEMOGLOBIN 12.9 GM/dL (11.7-16.9); LYMPH % 46.1 % (8-40); MCH 28.3 pg (25.7-33.7); MCHC 34.5 g/dl (32.0-35.9); MEAN CELL VOLUME 82.2 fl (80-96); MEAN PLT VOLUME 8.7 fl (7.5-11.1); PLATELET COUNT 277 10^3/uL (134-434); RBC 4.55 M/mm3 (4.00-5.60); RDW 13.5 % (11.9-15.9); WHITE BLOOD COUNT 4.3 K/mm3 (4.0-10.0)
[2023-05-31 13:59] LABS: POTASSIUM 4.3 mmol/L (3.5-5.1)
[2023-05-31 14:00] LABS: CALCIUM 8.8 mg/dL (8.5-10.1)
[2023-05-31 14:01] LABS: ALBUMIN 3.8 g/dl (3.4-5.0); BLOOD UREA NITROGEN 17.1 mg/dL (7-18)
[2023-05-31 14:04] LABS: CREATININE 0.6 mg/dL (0.55-1.3)
[2023-05-31 14:06] LABS: BILIRUBIN,TOTAL 0.2 mg/dL (0.2-1); TOT PROT 7.3 g/dl (6.4-8.2)
[2023-05-31] MEDS ORDERED: oxyCODONE HCL 5 MG TABLET PO PRN (15:08)
[2023-05-31] MEDS: oxyCODONE HCL 5 MG TABLET PO PRN ×2 (15:26→22:30)
[2023-05-31] MEDS: INSULIN (LEVEMIR) 100 UNITS/ML UNITS SQ SCH (22:25)
[2023-05-31] MEDS: DOCUSATE SODIUM 100 MG CAPSULE (FP) PO SCH (22:26)
[2023-06-01] MEDS: SODIUM CHLORIDE 1,000 ML IV SCH ×2 (03:39→10:10)
[2023-06-01] MEDS ORDERED: INSULIN (NOVOLOG) ASPART 100 UNITS/ML 10ML VIAL ONE ×3 (05:51→16:55)
[2023-06-01] MEDS: INSULIN SLIDING SCALE (NOVOLOG) 1 VIAL SQ SCH ×4 (06:20→21:59)
[2023-06-01] MEDS: oxyCODONE HCL 5 MG TABLET PO PRN ×2 (07:35→17:10)
[2023-06-01] MEDS: CEFTRIAXONE 2 GM in DEXTROSE 5%-WATER 100 ML IVPB SCH (10:10)
[2023-06-01] MEDS ORDERED: IBUPROFEN 800 MG/8 ML IJ IVPB ONE (11:27)
[2023-06-01 13:27] LABS: BASO % 0.2 % (0-2.0); EOS % 1.4 % (0-4.5); HEMATOCRIT 36.7 % (35.4-49); HEMOGLOBIN 12.1 GM/dL (11.7-16.9); LYMPH % 21.5 % (8-40); MCH 27.7 pg (25.7-33.7); MCHC 32.9 g/dl (32.0-35.9); MEAN CELL VOLUME 84.4 fl (80-96); MEAN PLT VOLUME 9.1 fl (7.5-11.1); NEUT % 68.9 % (42.8-82.8); PLATELET COUNT 261 10^3/uL (134-434); RBC 4.35 M/mm3 (4.00-5.60); RDW 13.5 % (11.9-15.9); WHITE BLOOD COUNT 7.1 K/mm3 (4.0-10.0)
[2023-06-01 13:46] LABS: POTASSIUM 4.2 mmol/L (3.5-5.1)
[2023-06-01 13:48] LABS: CALCIUM 8.7 mg/dL (8.5-10.1)
[2023-06-01 13:49] LABS: ALBUMIN 3.7 g/dl (3.4-5.0); BLOOD UREA NITROGEN 11.8 mg/dL (7-18); MAGNESIUM 1.9 mg/dL (1.8-2.4)
[2023-06-01 13:52] LABS: CREATININE 0.7 mg/dL (0.55-1.3)
[2023-06-01 13:54] LABS: BILIRUBIN,TOTAL 0.3 mg/dL (0.2-1)
[2023-06-01 15:00] VITALS: RESP 18
[2023-06-01] MEDS: PIPERACILLIN/TAZOB 3.375 GM 3.375 GM in DEXTROSE 5%-WATER - 50 ML IVPB SCH (17:28)
[2023-06-01] MEDS ORDERED: IBUPROFEN 800 MG/8 ML IJ IVPB PRN (17:30)
[2023-06-01] MEDS: DOCUSATE SODIUM 100 MG CAPSULE (FP) PO SCH (21:58)
[2023-06-01] MEDS: INSULIN (LEVEMIR) 100 UNITS/ML UNITS SQ SCH (21:59)
[2023-06-02] MEDS: PIPERACILLIN/TAZOB 3.375 GM 3.375 GM in DEXTROSE 5%-WATER - 50 ML IVPB SCH ×2 (01:09→09:28)
[2023-06-02 07:19] VITALS: BP 123/74; PULSE 82; TEMP 98.4
[2023-06-02] MEDS: INSULIN SLIDING SCALE (NOVOLOG) 1 VIAL SQ SCH ×2 (07:47→12:23)
[2023-06-02] MEDS: oxyCODONE HCL 5 MG TABLET PO PRN (09:21)
[2023-06-02 09:48] LABS: BASO % 0.2 % (0-2.0); EOS % 2.6 % (0-4.5); HEMATOCRIT 34.6 % (35.4-49); HEMOGLOBIN 12.1 GM/dL (11.7-16.9); LYMPH % 26.7 % (8-40); MCH 28.7 pg (25.7-33.7); MCHC 34.9 g/dl (32.0-35.9); MEAN CELL VOLUME 82.2 fl (80-96); MEAN PLT VOLUME 9.1 fl (7.5-11.1); MONO % 10.2 % (3.8-10.2); NEUT % 60.3 % (42.8-82.8); PLATELET COUNT 259 10^3/uL (134-434); RBC 4.21 M/mm3 (4.00-5.60); RDW 13.7 % (11.9-15.9); WHITE BLOOD COUNT 6.5 K/mm3 (4.0-10.0)
[2023-06-02 09:55] LABS: POTASSIUM 4.2 mmol/L (3.5-5.1)
[2023-06-02 10:03] LABS: ALBUMIN 3.5 g/dl (3.4-5.0); CREATININE 0.7 mg/dL (0.55-1.3)
[2023-06-02 10:04] LABS: BLOOD UREA NITROGEN 11.4 mg/dL (7-18)
[2023-06-02 10:05] LABS: BILIRUBIN,TOTAL 0.2 mg/dL (0.2-1); TOT PROT 6.9 g/dl (6.4-8.2)
[2023-06-02 10:07] LABS: CALCIUM 8.6 mg/dL (8.5-10.1)
[2023-06-02 10:08] LABS: MAGNESIUM 1.9 mg/dL (1.8-2.4)
[2023-06-02] MEDS: SODIUM CHLORIDE 1,000 ML IV SCH (11:09)
[2023-06-03] MEDS ORDERED: levoFLOXacin 750 MG TABLET PO SCH ×2 (06:00→08:30)
[2023-06-06 16:08] LABS: BENZODIAZEPINES, UR Negative ng/mL (Cutoff=200); CANNABINOIDS, URINE Negative ng/mL (Cutoff=20); METHADONE, URINE Negative ng/mL (Cutoff=300); OPIATES, UR See Final Results ng/mL (Cutoff=300); PHENCYCLIDINE, URINE Negative ng/mL (Cutoff=25)
== END 2023-06-02 11:15 | disposition home or self-care (01) | DRG 305 ==
LOC: JER 17:09 → JERBED 20:02 → J8W 22:19
PROVIDERS: ADMIT Internal Medicine; ATTEND Nurse Practitioner Acute Care
PROC: 0Y6M0ZF Detachment at Right Foot, Partial 5th Ray, Open Approach (ICD-10-PCS; principal; 2023-05-31 07:30)
DX: E11.69 Type 2 diabetes mellitus with other specified complication (principal); M86.8X7 Other osteomyelitis, ankle and foot; E11.40 Type 2 diabetes mellitus with diabetic neuropathy, unspecified; E11.52 Type 2 diabetes mellitus with diabetic peripheral angiopathy with gangrene; Z79.4 Long term (current) use of insulin
CPT/HCPCS: 36415; 73630-TC-RT-FY; 73718-TC-RT; 80053; 80307; 82962; 83605; 83735; 84100; 85025; 85027; 85610; 85730; 86140; 86850; 86900; 86901; 87040; 87070; 87186; 87205; 87635; 88305-TC; 88311-TC; 93005; 93010; 94760; 99285-25

== ENCOUNTER 2023-07-18 04:00 | Day surgery (SDC) | payer OTHER ==
[2023-07-16 11:52] VITALS: BMI 32.1
[~2023-07-18 04:00] MED LIST: ACETAMINOPHEN 325 MG TABLET (FP) PO PRN; BSS (NA/CA/MG/K) BALANCED SALT SOLUTION OPHTH SOLN 15 ML BOTTLE OS ONE; BUPIVACAINE HCL/PF 0.75% 10 ML VIAL NR ONE; CHONDROITIN SU A/HYALUR SOD 1 KIT IO ONE; EPINEPHrine/PF 1 MG/1 ML (1:1,000) AMPULE SQ ONE; LIDOCAINE HCL 1% PRESERVATIVE FREE - 30ML VIAL IO ONE; LIDOCAINE HCL/PF 2% SDV 5ML VIAL INF ONE; POVIDONE-IODINE 5% OPHTHALMIC PREP 30 ML SOLUTION OS ONE; TETRACAINE 0.5% OPHTH SOLN 2 ML BOTTLE TP ONE
[2023-07-18] MEDS ORDERED: POVIDONE-IODINE 5% OPHTHALMIC PREP 30 ML SOLUTION ONE (07:45)
[2023-07-18] MEDS ORDERED: BSS (NA/CA/MG/K) BALANCED SALT SOLUTION OPHTH SOLN 15 ML BOTTLE ONE (07:45)
[2023-07-18] MEDS ORDERED: TETRACAINE 0.5% OPHTH SOLN 2 ML BOTTLE ONE (07:45)
[2023-07-18] MEDS ORDERED: LIDOCAINE HCL/PF 1% SDV 5ML VIAL ONE (07:48)
[2023-07-18] MEDS ORDERED: OFLOXACIN 0.3% OPHTHALMIC SOLUTION 5 ML BOTTLE ONE (10:25)
[2023-07-18] MEDS ORDERED: PHENYLEPHRINE 2.5% OPTHALMIC DROP 2ML BOTTLE ONE (10:25)
[2023-07-18] MEDS ORDERED: KETOROLAC TROMETHAMINE 0.5% EYE DROP 1 DROP DROPS ONE (10:25)
[2023-07-18] MEDS ORDERED: CYCLOPENTOLATE HCL 1% OPHTH SOLN 2 ML BOTTLE ONE (10:25)
[2023-07-18] MEDS ORDERED: TROPICAMIDE 1% OPHTH SOLN 15 ML BOTTLE ONE (10:25)
[2023-07-18] MEDS: CYCLOPENTOLATE HCL 1% OPHTH SOLN 2 ML BOTTLE OP SCH ×3 (10:45→11:14)
[2023-07-18] MEDS: KETOROLAC TROMETHAMINE 0.5% EYE DROP 1 DROP DROPS OP SCH ×3 (10:45→11:14)
[2023-07-18] MEDS: PHENYLEPHRINE 2.5% OPHTH SOLN 15 ML BOTTLE OP SCH ×3 (10:46→11:14)
[2023-07-18] MEDS: TROPICAMIDE 1% OPHTH SOLN 15 ML BOTTLE OP SCH ×3 (10:46→11:14)
[2023-07-18] MEDS: OFLOXACIN 0.3% OPHTHALMIC SOLUTION 5 ML BOTTLE OP SCH ×3 (10:47→11:15)
[2023-07-18] MEDS ORDERED: PROPOFOL 20 ML ONE (12:07)
[2023-07-18] MEDS ORDERED: POVIDONE-IODINE 5% OPHTHALMIC PREP 30 ML SOLUTION OS ONE ×3 (12:35→12:38)
[2023-07-18] MEDS ORDERED: LIDOCAINE HCL/PF 2% SDV 5ML VIAL INF ONE (12:35)
[2023-07-18] MEDS ORDERED: BUPIVACAINE HCL/PF 0.75% 10 ML VIAL NR ONE (12:35)
[2023-07-18] MEDS ORDERED: BSS (NA/CA/MG/K) BALANCED SALT SOLUTION OPHTH SOLN 15 ML BOTTLE OS ONE (12:45)
[2023-07-18] MEDS ORDERED: CHONDROITIN SU A/HYALUR SOD 1 KIT IO ONE (12:45)
[2023-07-18] MEDS ORDERED: LIDOCAINE HCL 1% PRESERVATIVE FREE - 30ML VIAL IO ONE (12:45)
[2023-07-18] MEDS ORDERED: EPINEPHrine/PF 1 MG/1 ML (1:1,000) AMPULE SQ ONE (12:52)
[2023-07-18 13:20] VITALS: TEMP 98.4
[2023-07-18 13:49] VITALS: BP 130/90; PULSE 75; RESP 18
== END 2023-07-18 13:50 | disposition home or self-care (01) ==
LOC: JASU-SURG 04:00
PROVIDERS: ATTEND Ophthalmology
PROC: 08RK3JZ Replacement of Left Lens with Synthetic Substitute, Percutaneous Approach (ICD-10-PCS; principal; 2023-07-18 12:00)
DX: H26.9 Unspecified cataract (principal)
CPT/HCPCS: 82962; V2632

== ENCOUNTER 2023-10-05 18:39 | Inpatient (IN) | payer OTHER ==
[2023-10-05 18:52] VITALS: BMI 32.1
[2023-10-05] MEDS ORDERED: IBUPROFEN 600 MG TABLET (FP) PO ONE (19:40)
[2023-10-05] MEDS ORDERED: ACETAMINOPHEN INJECTION 100 ML IVPB ONE (19:41)
[2023-10-05] MEDS: IBUPROFEN 600 MG TABLET (FP) PO ONE (19:59)
[2023-10-05 20:12] LABS: BASO % 0.1 % (0-2.0); EOS % 0.1 % (0-4.5); HEMATOCRIT 35.3 % (35.4-49); HEMOGLOBIN 11.9 GM/dL (11.7-16.9); LYMPH % 6.8 % (8-40); MCH 28.2 pg (25.7-33.7); MCHC 33.8 g/dl (32.0-35.9); MEAN CELL VOLUME 83.5 fl (80-96); MEAN PLT VOLUME 10.1 fl (7.5-11.1); MONO % 8.3 % (3.8-10.2); NEUT % 84.7 % (42.8-82.8); PLATELET COUNT 238 10^3/uL (134-434); RBC 4.22 M/mm3 (4.00-5.60)
[2023-10-05 20:32] LABS: CHLORIDE 93 mmol/L (98-107); POTASSIUM 4.7 mmol/L (3.5-5.1); SODIUM 130 mmol/L (136-145)
[2023-10-05 20:34] LABS: CALCIUM 8.6 mg/dL (8.5-10.1)
[2023-10-05 20:35] LABS: ALBUMIN 3.6 g/dl (3.4-5.0); ANION GAP 9 mmol/L (4-13); BLOOD UREA NITROGEN 10.1 mg/dL (7-18); CO2 28 mmol/L (21-32)
[2023-10-05 20:37] LABS: CREATININE 1.1 mg/dL (0.55-1.3); SGOT/AST 7 U/L (15-37); SGPT/ALT 15 U/L (13-61)
[2023-10-05 20:39] LABS: BILIRUBIN,TOTAL 0.6 mg/dL (0.2-1); TOT PROT 7.4 g/dl (6.4-8.2)
[2023-10-05 20:41] LABS: ALK PHOS 96 U/L (45-117)
[2023-10-05] MEDS: ACETAMINOPHEN 1000 MG/100 ML BAG IVPB ONE (20:56)
[2023-10-05] MEDS: SODIUM CHLORIDE 1,000 ML IV STA ×2 (20:56→23:21)
[2023-10-05 21:01] LABS: GLUCOSE,RANDOM 632 mg/dL (74-106)
[2023-10-05] MEDS: INSULIN REGULAR HUMAN 100 UNITS/ML *VIAL IVPUSH ONE (21:53)
[2023-10-05] MEDS ORDERED: DALBAVANCIN HCL 500 MG VIAL (RESTRICTED TO ID ONLY) IVPB ONE (22:04)
[2023-10-05] MEDS: DALBAVANCIN HCL 1,500 MG in DEXTROSE 5%-WATER - 500 ML IVPB ONE (22:29)
[2023-10-05] MEDS ORDERED: KETOROLAC TROMETHAMINE 15 MG/ML VIAL ONE (23:14)
[2023-10-05] MEDS: KETOROLAC TROMETHAMINE 15 MG/ML VIAL IVPUSH ONE (23:18)
[2023-10-06] MEDS: SODIUM CHLORIDE 1,000 ML IV SCH (01:51)
[2023-10-06] MEDS ORDERED: INSULIN (NOVOLOG) ASPART 100 UNITS/ML 10ML VIAL ONE (01:52)
[2023-10-06] MEDS: INSULIN ASPART SLIDING SCALE (NOVOLOG) 1 VIAL SQ SCH ×2 (01:58→06:18)
[2023-10-06 02:19] LABS: POTASSIUM 4.5 mmol/L (3.5-5.1)
[2023-10-06 02:20] LABS: CALCIUM 8.3 mg/dL (8.5-10.1)
[2023-10-06 02:22] LABS: BLOOD UREA NITROGEN 11.9 mg/dL (7-18)
[2023-10-06 02:24] LABS: CREATININE 0.7 mg/dL (0.55-1.3)
[2023-10-06 08:57] LABS: BASO % 0.2 % (0-2.0); EOS % 1.4 % (0-4.5); HEMATOCRIT 34.4 % (35.4-49); HEMOGLOBIN 11.4 GM/dL (11.7-16.9); LYMPH % 16.3 % (8-40); MCH 27.8 pg (25.7-33.7); MCHC 33.1 g/dl (32.0-35.9); MEAN CELL VOLUME 84.1 fl (80-96); MEAN PLT VOLUME 9.8 fl (7.5-11.1); MONO % 8.7 % (3.8-10.2); NEUT % 73.4 % (42.8-82.8); PLATELET COUNT 212 10^3/uL (134-434); RBC 4.09 M/mm3 (4.00-5.60); WHITE BLOOD COUNT 12.3 K/mm3 (4.0-10.0)
[2023-10-06 09:02] LABS: BLOOD UREA NITROGEN 10.6 mg/dL (7-18); CALCIUM 8.6 mg/dL (8.5-10.1)
[2023-10-06 09:06] LABS: CREATININE 0.6 mg/dL (0.55-1.3)
[2023-10-06 09:43] LABS: ERYTHROCYTE SEDIMENTATION RATE 78 mm/hr (0-10)
[2023-10-06] MEDS: PIPERACILLIN/TAZOB 4.5 GM 4.5 GM in DEXTROSE 5%-WATER 100 ML IVPB SCH ×3 (09:46→21:18)
[2023-10-06] MEDS ORDERED: ENOXAPARIN NA (PORCINE) 40 MG/0.4 ML DISP.SYRIN SQ SCH (10:00)
[2023-10-06] MEDS: metFORMIN HCL 500 MG TABLET (FP) PO SCH (10:41)
[2023-10-06 15:16] LABS: EPI CELLS >36 /uL (0-25.1); HYALINE CASTS 8 /uL (0-3.1); URINE APPEARANCE CLOUDY; URINE BACTERIA 15 /uL (0-1359); URINE BILIRUBIN NEGATIVE (NEGATIVE); URINE COLOR YELLOW; URINE GLUCOSE (UA) 3+ (NEGATIVE); URINE KETONE TRACE (NEGATIVE); URINE LEUK ESTERASE NEGATIVE (NEGATIVE); URINE NITRITE NEGATIVE (NEGATIVE); URINE PROTEIN 1+ (NEGATIVE); URINE RBC 42 /uL (0-23.9); URINE WBC 47 /uL (0-25.8)
[2023-10-06] MEDS: INSULIN (LEVEMIR) 100 UNITS/ML UNITS SQ SCH (21:23)
[2023-10-06] MEDS: ACETAMINOPHEN 325 MG TABLET (FP) PO PRN (21:42)
[2023-10-07 08:59] LABS: BASO % 0.3 % (0-2.0); EOS % 1.8 % (0-4.5); HEMATOCRIT 37.3 % (35.4-49); HEMOGLOBIN 12.5 GM/dL (11.7-16.9); LYMPH % 15.5 % (8-40); MCH 28.1 pg (25.7-33.7); MCHC 33.4 g/dl (32.0-35.9); MEAN PLT VOLUME 9.5 fl (7.5-11.1); NEUT % 74.4 % (42.8-82.8); PLATELET COUNT 254 10^3/uL (134-434); RBC 4.44 M/mm3 (4.00-5.60); RDW 12.9 % (11.9-15.9)
[2023-10-07 09:20] LABS: POTASSIUM 4.1 mmol/L (3.5-5.1)
[2023-10-07 09:22] LABS: CALCIUM 9.1 mg/dL (8.5-10.1)
[2023-10-07 09:24] LABS: BLOOD UREA NITROGEN 7.9 mg/dL (7-18)
[2023-10-07 09:27] LABS: CREATININE 0.8 mg/dL (0.55-1.3)
[2023-10-07] MEDS: INSULIN (LEVEMIR) 100 UNITS/ML UNITS SQ SCH (22:29)
[2023-10-08 09:23] LABS: BASO % 0.2 % (0-2.0); EOS % 1.8 % (0-4.5); HEMATOCRIT 38.1 % (35.4-49); HEMOGLOBIN 12.7 GM/dL (11.7-16.9); LYMPH % 23.9 % (8-40); MCH 27.9 pg (25.7-33.7); MCHC 33.3 g/dl (32.0-35.9); MEAN CELL VOLUME 83.8 fl (80-96); MEAN PLT VOLUME 9.1 fl (7.5-11.1); MONO % 10.7 % (3.8-10.2); NEUT % 63.4 % (42.8-82.8); PLATELET COUNT 295 10^3/uL (134-434); RBC 4.55 M/mm3 (4.00-5.60); WHITE BLOOD COUNT 10.3 K/mm3 (4.0-10.0)
[2023-10-08 09:39] LABS: POTASSIUM 4.3 mmol/L (3.5-5.1)
[2023-10-08 09:42] LABS: BLOOD UREA NITROGEN 9.7 mg/dL (7-18)
[2023-10-08 09:45] LABS: CALCIUM 9.2 mg/dL (8.5-10.1); CREATININE 0.8 mg/dL (0.55-1.3)
[2023-10-09] MEDS: traMADol HCL 50 MG TABLET PO ONE (06:54)
[2023-10-09 10:55] VITALS: BP 109/59; PULSE 79; RESP 17; TEMP 98.5
[2023-10-09 12:08] LABS: BASO % 0.2 % (0-2.0); EOS % 1.9 % (0-4.5); HEMATOCRIT 35.9 % (35.4-49); LYMPH % 18.2 % (8-40); MCHC 33.5 g/dl (32.0-35.9); MEAN CELL VOLUME 83.7 fl (80-96); MEAN PLT VOLUME 9.3 fl (7.5-11.1); MONO % 8.8 % (3.8-10.2); NEUT % 70.9 % (42.8-82.8); PLATELET COUNT 308 10^3/uL (134-434); RBC 4.28 M/mm3 (4.00-5.60); RDW 12.6 % (11.9-15.9); WHITE BLOOD COUNT 9.5 K/mm3 (4.0-10.0)
[2023-10-09 12:09] LABS: POTASSIUM 4.7 mmol/L (3.5-5.1)
[2023-10-09 12:11] LABS: BLOOD UREA NITROGEN 10.9 mg/dL (7-18); CALCIUM 9.6 mg/dL (8.5-10.1)
[2023-10-09 12:15] LABS: CREATININE 0.9 mg/dL (0.55-1.3)
[2023-10-09 12:16] LABS: BILIRUBIN,TOTAL 0.3 mg/dL (0.2-1); TOT PROT 7.4 g/dl (6.4-8.2)
== END 2023-10-09 12:14 | disposition home or self-care (01) | DRG 720 ==
LOC: JER 18:39 → JERBED 10-06 01:11 → J5S 10-06 03:00 → OBSVTOIN 10-07 11:26
PROVIDERS: ADMIT Internal Medicine; ATTEND Family Medicine
DX: A41.9 Sepsis, unspecified organism (principal); E11.621 Type 2 diabetes mellitus with foot ulcer; L03.116 Cellulitis of left lower limb; E11.65 Type 2 diabetes mellitus with hyperglycemia; L97.509 Non-pressure chronic ulcer of other part of unspecified foot with unspecified severity; F17.200 Nicotine dependence, unspecified, uncomplicated; L98.499 Non-pressure chronic ulcer of skin of other sites with unspecified severity
CPT/HCPCS: 0241U-QW; 36415; 71046-TC-FY; 73562-TC-LT-FY; 73630-TC-LT; 73718-TC-LT; 80048; 80053; 81003; 82010; 82962; 83036; 85025; 85651; 86140; 87040; 87186; 93971-TC; 99285-25; G0378; J0131; J0875

== ENCOUNTER 2023-10-27 18:11 | Inpatient (IN) | payer OTHER ==
[2023-10-27] MEDS: ACETAMINOPHEN 1000 MG/100 ML BAG IVPB ONE (20:46)
[2023-10-27 20:57] LABS: BASO % 0.1 % (0-2.0); EOS % 0.3 % (0-4.5); HEMATOCRIT 35.2 % (35.4-49); HEMOGLOBIN 11.9 GM/dL (11.7-16.9); LYMPH % 14.8 % (8-40); MCH 27.9 pg (25.7-33.7); MCHC 33.7 g/dl (32.0-35.9); MEAN CELL VOLUME 82.8 fl (80-96); MONO % 12.1 % (3.8-10.2); NEUT % 72.7 % (42.8-82.8); PLATELET COUNT 315 10^3/uL (134-434); RBC 4.26 M/mm3 (4.00-5.60); RDW 12.9 % (11.9-15.9); WHITE BLOOD COUNT 8.6 K/mm3 (4.0-10.0)
[2023-10-27 20:59] LABS: INR 1.29 (0.83-1.09); PROTHROMBIN TIME (PATIENT) 14.9 SEC (9.7-13.0)
[2023-10-27 21:02] LABS: ACTIVATED PTT 29.6 SECONDS (25.2-36.5)
[2023-10-27] MEDS ORDERED: ACETAMINOPHEN 500 MG TABLET (FP) ONE (21:02)
[2023-10-27] MEDS: ACETAMINOPHEN 500 MG TABLET (FP) PO ONE (21:05)
[2023-10-27 21:15] LABS: ALBUMIN 3.3 g/dl (3.4-5.0); CALCIUM 8.7 mg/dL (8.5-10.1)
[2023-10-27 21:18] LABS: CREATININE 0.8 mg/dL (0.55-1.3)
[2023-10-27 21:20] LABS: BILIRUBIN,TOTAL 0.3 mg/dL (0.2-1); TOT PROT 7.5 g/dl (6.4-8.2)
[2023-10-27] MEDS ORDERED: INSULIN (NOVOLOG MIX 70/30) 100 UNITS/ML MDV SQ ONE (22:10)
[2023-10-27] MEDS ORDERED: IBUPROFEN 400 MG TABLET (FP) PO ONE (22:10)
[2023-10-27] MEDS: INSULIN (NOVOLOG MIX 70/30) 100 UNITS/ML MDV SQ ONE (22:18)
[2023-10-27] MEDS: IBUPROFEN 400 MG TABLET (FP) PO ONE (22:18)
[2023-10-27] MEDS ORDERED: DOCUSATE SODIUM 100 MG CAPSULE (FP) PO PRN (22:21)
[2023-10-27] MEDS: SODIUM CHLORIDE 0.9% 500 ML INFUS.BAG IV ONE (23:22)
[2023-10-28] MEDS: SODIUM CHLORIDE 1,000 ML IV SCH (00:17)
[2023-10-28] MEDS ORDERED: INSULIN (NOVOLOG) ASPART 100 UNITS/ML 10ML VIAL ONE (08:21)
[2023-10-28] MEDS: INSULIN ASPART SLIDING SCALE (NOVOLOG) 1 VIAL SQ SCH ×2 (08:23→22:26)
[2023-10-28 09:28] LABS: BASO % 0.2 % (0-2.0); EOS % 0.6 % (0-4.5); HEMATOCRIT 32.4 % (35.4-49); LYMPH % 20.8 % (8-40); MEAN CELL VOLUME 82.2 fl (80-96); MEAN PLT VOLUME 8.2 fl (7.5-11.1); MONO % 15.6 % (3.8-10.2); NEUT % 62.8 % (42.8-82.8); PLATELET COUNT 294 10^3/uL (134-434); RBC 3.94 M/mm3 (4.00-5.60); RDW 13.1 % (11.9-15.9); WHITE BLOOD COUNT 8.2 K/mm3 (4.0-10.0)
[2023-10-28 09:58] LABS: POTASSIUM 3.9 mmol/L (3.5-5.1)
[2023-10-28 10:07] LABS: CALCIUM 8.4 mg/dL (8.5-10.1)
[2023-10-28 10:08] LABS: BLOOD UREA NITROGEN 10.3 mg/dL (7-18)
[2023-10-28 10:11] LABS: CREATININE 0.7 mg/dL (0.55-1.3); PHOSPHOROUS 2.2 mg/dL (2.5-4.9)
[2023-10-28] MEDS: NICOTINE 21 MG/24 HOURS TOPICAL PATCH TD SCH (10:20)
[2023-10-28] MEDS: HEPARIN NA (PORCINE) 5,000 UNITS/ML 1ML VIAL SQ SCH (14:07)
[2023-10-28 14:33] VITALS: BMI 30.3
[2023-10-28] MEDS: ACETAMINOPHEN 325 MG TABLET (FP) PO PRN (22:27)
[2023-10-29] MEDS ORDERED: INSULIN (NOVOLOG) ASPART 100 UNITS/ML 10ML VIAL ONE (06:21)
[2023-10-29] MEDS: INSULIN (LEVEMIR) 100 UNITS/ML UNITS SQ SCH (06:48)
[2023-10-29] MEDS ORDERED: LIDOCAINE HCL 1%, 10 MG/ML (20ML VIAL) ONE ×2 (09:14→09:46)
[2023-10-29] MEDS ORDERED: DEXAMETHASONE SOD PHOSPHATE 4 MG/1 ML VIAL ONE (09:15)
[2023-10-29] MEDS ORDERED: BUPIVACAINE HCL/PF 0.5% (5MG/ML) 10 ML VIAL ONE (09:15)
[2023-10-29] MEDS ORDERED: FENTANYL CITRATE/PF 50 MCG/ML VIAL ONE (09:54)
[2023-10-29] MEDS ORDERED: MIDAZOLAM HCL 2 MG/2 ML SINGLE DOSE VIAL ONE (09:55)
[2023-10-29] MEDS ORDERED: GENTAMICIN SO4 80 MG/2 ML VIAL ONE (09:56)
[2023-10-29] MEDS: LIDOCAINE HCL 1% PRESERVATIVE FREE - 30ML VIAL IJ ONE (10:11)
[2023-10-29] MEDS: GENTAMICIN SO4 80 MG/2 ML VIAL IVPB ONE (10:11)
[2023-10-29] MEDS: LIDOCAINE HCL 1%, 10 MG/ML (20ML VIAL) INF ONE (10:11)
[2023-10-29] MEDS: VANCOMYCIN 1,000 MG VIAL (RESTRICTED TO ID ONLY) IVPB ONE (10:19)
[2023-10-29] MEDS ORDERED: DOCUSATE SODIUM 100 MG CAPSULE (FP) PO PRN (10:54)
[2023-10-29] MEDS ORDERED: ACETAMINOPHEN 325 MG TABLET (FP) PO PRN (10:54)
[2023-10-29] MEDS ORDERED: NICOTINE POLACRILEX 2 MG GUM BUC PRN (15:26)
[2023-10-29] MEDS: INSULIN ASPART SLIDING SCALE (NOVOLOG) 1 VIAL SQ SCH (17:23)
[2023-10-29] MEDS: LACTATED RINGERS SOLUTION 1,000 ML IV SCH ×2 (19:46→21:12)
[2023-10-30] MEDS ORDERED: INSULIN (LEVEMIR) 100 UNITS/ML UNITS SQ ONE (04:53)
[2023-10-30] MEDS ORDERED: INSULIN (NOVOLOG) ASPART 100 UNITS/ML 10ML VIAL ONE ×3 (04:54→11:36)
[2023-10-30] MEDS ORDERED: INSULIN (LEVEMIR) 100 UNITS/ML UNITS SQ SCH (07:00)
[2023-10-30] MEDS: INSULIN (LEVEMIR) 100 UNITS/ML UNITS SQ SCH (08:24)
[2023-10-30] MEDS: INSULIN ASPART SLIDING SCALE (NOVOLOG) 1 VIAL SQ SCH (08:24)
[2023-10-30 09:31] LABS: BASO % 0.2 % (0-2.0); EOS % 4.1 % (0-4.5); HEMATOCRIT 33.3 % (35.4-49); HEMOGLOBIN 11.2 GM/dL (11.7-16.9); MCH 27.8 pg (25.7-33.7); MCHC 33.5 g/dl (32.0-35.9); MEAN CELL VOLUME 82.8 fl (80-96); NEUT % 46.7 % (42.8-82.8); PLATELET COUNT 327 10^3/uL (134-434); RBC 4.02 M/mm3 (4.00-5.60); RDW 12.9 % (11.9-15.9); WHITE BLOOD COUNT 4.9 K/mm3 (4.0-10.0)
[2023-10-30] MEDS: ENOXAPARIN NA (PORCINE) 40 MG/0.4 ML DISP.SYRIN SQ SCH (10:06)
[2023-10-30] MEDS: NICOTINE 21 MG/24 HOURS TOPICAL PATCH TD SCH (10:07)
[2023-10-31] MEDS: INSULIN (LEVEMIR) 100 UNITS/ML UNITS SQ SCH (06:38)
[2023-10-31] MEDS ORDERED: INSULIN (NOVOLOG) ASPART 100 UNITS/ML 10ML VIAL ONE ×3 (08:35→21:32)
[2023-10-31] MEDS: VANCOMYCIN/WATER FOR INJ (PEG) 1,000 MG/200 ML BAG IVPB SCH ×2 (09:27→18:16)
[2023-10-31] MEDS: CEFTRIAXONE 2 GM in DEXTROSE 5%-WATER 100 ML IVPB SCH (10:59)
[2023-11-01 06:40] VITALS: RESP 18
[2023-11-01] MEDS ORDERED: INSULIN (NOVOLOG) ASPART 100 UNITS/ML 10ML VIAL ONE (10:25)
[2023-11-01 10:29] VITALS: BP 146/88; PULSE 81; TEMP 98.4
== END 2023-11-01 13:22 | disposition home or self-care (01) | DRG 320 ==
LOC: JER 18:11 → JERBED 22:04 → J7W 10-28 06:52
PROVIDERS: ADMIT Internal Medicine; ATTEND Family Medicine
PROC: 0Q9R0ZZ Drainage of Left Toe Phalanx, Open Approach (ICD-10-PCS; principal; 2023-10-29 10:00)
PROC: 0Q9 Lower Bones, Drainage (ICD-10-PCS; 2023-10-29 10:00)
DX: E11.69 Type 2 diabetes mellitus with other specified complication (principal); M86.9 Osteomyelitis, unspecified; E11.621 Type 2 diabetes mellitus with foot ulcer; E11.65 Type 2 diabetes mellitus with hyperglycemia; L97.509 Non-pressure chronic ulcer of other part of unspecified foot with unspecified severity; F17.209 Nicotine dependence, unspecified, with unspecified nicotine-induced disorders; L03.90 Cellulitis, unspecified; S92.403A Displaced unspecified fracture of unspecified great toe, initial encounter for closed fracture; L02.612 Cutaneous abscess of left foot; E11.40 Type 2 diabetes mellitus with diabetic neuropathy, unspecified; F17.210 Nicotine dependence, cigarettes, uncomplicated; X58.XXXA Exposure to other specified factors, initial encounter; Y93.9 Activity, unspecified; Y92.89 Other specified places as the place of occurrence of the external cause; Y99.9 Unspecified external cause status
CPT/HCPCS: 36415; 73630-TC-LT; 73660-TC-LT-FY; 73721-LT-TC; 80048; 80053; 80307; 82962; 83036; 83735; 84100; 84439; 84443; 85025; 85610; 85651; 85730; 86140; 86850; 86900; 86901; 87040; 87070; 87075; 87186; 87205; 93005; 93010; 94760; 99285-25

== ENCOUNTER 2023-11-02 16:21 | Day surgery (SDC) | payer OTHER ==
[2023-11-02 16:52] VITALS: BP 132/85; RESP 18; TEMP 98.5
[2023-11-02] MEDS: DALBAVANCIN HCL 1,500 MG in DEXTROSE 5%-WATER - 500 ML IVPB ONE (17:03)
[2023-11-02 18:24] VITALS: PULSE 18
[2023-11-02] MEDS: CEFTRIAXONE 2 GM in SODIUM CHLORIDE 100 ML IVPB ONE (18:24)
== END 2023-11-02 18:25 | disposition home or self-care (01) ==
LOC: FINFUSION 16:21 → FM/S 16:22 → FINFUSION 18:25
PROVIDERS: ATTEND Internal Medicine Infectious Disease
CPT/HCPCS: 96365; J0875

== ENCOUNTER 2023-11-08 16:14 | Day surgery (SDC) | payer OTHER ==
[2023-11-08] MEDS: CEFTRIAXONE 2 GM in DEXTROSE 5%-WATER 100 ML IVPB ONE (16:45)
[2023-11-08 17:43] VITALS: BP 133/70; PULSE 81; RESP 20; TEMP 98.4
== END 2023-11-08 17:25 | disposition home or self-care (01) ==
LOC: FINFUSION 16:14 → FM/S 16:14 → FINFUSION 17:25
PROVIDERS: ATTEND Internal Medicine Infectious Disease
DX: M86.9 Osteomyelitis, unspecified (principal); L08.9 Local infection of the skin and subcutaneous tissue, unspecified; L03.032 Cellulitis of left toe; E11.621 Type 2 diabetes mellitus with foot ulcer; L97.509 Non-pressure chronic ulcer of other part of unspecified foot with unspecified severity; F17.210 Nicotine dependence, cigarettes, uncomplicated
CPT/HCPCS: 96365

== ENCOUNTER 2023-11-10 16:21 | Emergency (ER) | payer OTHER ==
[2023-11-10 16:28] VITALS: BP 141/95; PULSE 92; RESP 18; TEMP 98; BMI 30.7
[2023-11-10] MEDS ORDERED: DALBAVANCIN HCL 500 MG VIAL (RESTRICTED TO ID ONLY) IVPB ONE (17:27)
[2023-11-10] MEDS: DALBAVANCIN HCL 1,500 MG in DEXTROSE 5%-WATER - 500 ML IVPB ONE (17:53)
[2023-11-10] MEDS ORDERED: CEFTRIAXONE 2 GM/100 ML BAG IVPB ONE (18:57)
[2023-11-10] MEDS: CEFTRIAXONE 2,000 MG in DEXTROSE 5%-WATER - 50 ML IVPB ONE (19:16)
== END 2023-11-10 20:08 | disposition home or self-care (01) ==
LOC: JER 16:21
DX: E11.65 Type 2 diabetes mellitus with hyperglycemia (principal); M86.672 Other chronic osteomyelitis, left ankle and foot; Z79.899 Other long term (current) drug therapy
CPT/HCPCS: 82962; 99284-25; J0875

== ENCOUNTER 2023-11-11 15:05 | Emergency (ER) | payer OTHER ==
[2023-11-11 15:20] VITALS: BP 124/81; PULSE 84; RESP 18; TEMP 98.7; BMI 30.7
[2023-11-11] MEDS ORDERED: CEFTRIAXONE 2 GM/100 ML BAG IVPB ONE (15:57)
[2023-11-11] MEDS: CEFTRIAXONE 2,000 MG in DEXTROSE 5%-WATER - 50 ML IVPB ONE (16:19)
== END 2023-11-11 16:50 | disposition home or self-care (01) ==
LOC: JER 15:05
DX: M86.672 Other chronic osteomyelitis, left ankle and foot (principal); Z76.89 Persons encountering health services in other specified circumstances
CPT/HCPCS: 99284-25

== ENCOUNTER 2023-11-12 14:04 | Emergency (ER) | payer OTHER ==
[2023-11-12 14:15] VITALS: BP 121/75; PULSE 85; RESP 18; TEMP 98.1; BMI 30.7
[2023-11-12] MEDS ORDERED: CEFTRIAXONE 2 GM/100 ML BAG IVPB ONE (15:11)
== END 2023-11-12 16:40 | disposition home or self-care (01) ==
LOC: JER 14:04
PROC: 3E030GC Introduction of Other Therapeutic Substance into Peripheral Vein, Open Approach (ICD-10-PCS; principal; 2023-11-12)
DX: M86.172 Other acute osteomyelitis, left ankle and foot (principal)
CPT/HCPCS: 99284-25

== ENCOUNTER 2023-11-13 14:39 | Emergency (ER) | payer OTHER ==
[2023-11-13 14:44] VITALS: BP 131/84; PULSE 87; RESP 18; TEMP 98; BMI 30.7
[2023-11-13] MEDS ORDERED: CEFTRIAXONE 1 GM/50 ML BAG ONE (15:03)
[2023-11-13] MEDS: CEFTRIAXONE 1,000 MG in DEXTROSE 5%-WATER - 50 ML IVPB ONE (15:15)
== END 2023-11-13 15:50 | disposition home or self-care (01) ==
LOC: JER 14:39
DX: M86.172 Other acute osteomyelitis, left ankle and foot (principal)
CPT/HCPCS: 99284-25

== ENCOUNTER 2023-11-14 15:47 | Day surgery (SDC) | payer OTHER ==
[2023-11-14] MEDS: CEFTRIAXONE 2 GM in DEXTROSE 5%-WATER 100 ML IVPB ONE (16:17)
[2023-11-14 16:54] VITALS: BP 130/80; PULSE 82; RESP 18; TEMP 98.4
== END 2023-11-14 16:55 | disposition home or self-care (01) ==
LOC: FINFUSION 15:47 → FM/S 15:48 → FINFUSION 16:55
PROVIDERS: ATTEND Internal Medicine Infectious Disease
DX: M86.9 Osteomyelitis, unspecified (principal); L03.032 Cellulitis of left toe; E11.621 Type 2 diabetes mellitus with foot ulcer; L97.509 Non-pressure chronic ulcer of other part of unspecified foot with unspecified severity
CPT/HCPCS: 96365

== ENCOUNTER 2023-11-15 16:17 | Day surgery (SDC) | payer OTHER ==
[2023-11-15] MEDS: CEFTRIAXONE 2 GM in DEXTROSE 5%-WATER 100 ML IVPB ONE (16:50)
[2023-11-15 18:04] VITALS: BP 127/63; PULSE 67; RESP 17; TEMP 97.8
== END 2023-11-15 17:30 | disposition home or self-care (01) ==
LOC: FM/S 16:17 → FINFUSION 16:17
PROVIDERS: ATTEND Internal Medicine Infectious Disease
DX: M86.9 Osteomyelitis, unspecified (principal); L03.032 Cellulitis of left toe; E11.621 Type 2 diabetes mellitus with foot ulcer; Z79.84 Long term (current) use of oral hypoglycemic drugs; F17.210 Nicotine dependence, cigarettes, uncomplicated
CPT/HCPCS: 96365

== ENCOUNTER 2023-11-16 18:30 | Day surgery (SDC) | payer OTHER ==
[2023-11-16] MEDS: CEFTRIAXONE 2 GM in DEXTROSE 5%-WATER 100 ML IVPB ONE (18:54)
[2023-11-16 19:32] VITALS: BP 133/76; PULSE 78; RESP 16; TEMP 98.5
== END 2023-11-16 20:10 | disposition home or self-care (01) ==
LOC: FINFUSION 18:30 → FM/S 18:33 → FINFUSION 20:10
PROVIDERS: ATTEND Internal Medicine Infectious Disease
DX: M86.9 Osteomyelitis, unspecified (principal); L03.032 Cellulitis of left toe; L08.9 Local infection of the skin and subcutaneous tissue, unspecified
CPT/HCPCS: 96365

== ENCOUNTER 2023-11-17 17:18 | Day surgery (SDC) | payer OTHER ==
[2023-11-17] MEDS: CEFTRIAXONE 2 GM in DEXTROSE 5%-WATER 100 ML IVPB ONE (18:35)
[2023-11-17 19:32] VITALS: BP 137/72; PULSE 80; RESP 18; TEMP 98.7
== END 2023-11-17 19:33 | disposition home or self-care (01) ==
LOC: FINFUSION 17:18 → FM/S 18:05 → FINFUSION 19:33
PROVIDERS: ATTEND Internal Medicine Infectious Disease
DX: M86.9 Osteomyelitis, unspecified (principal); L03.032 Cellulitis of left toe; L08.9 Local infection of the skin and subcutaneous tissue, unspecified
CPT/HCPCS: 96365

== ENCOUNTER 2023-11-18 19:13 | Day surgery (SDC) | payer OTHER ==
[2023-11-18] MEDS: CEFTRIAXONE 2 GM in DEXTROSE 5%-WATER 100 ML IVPB ONE (19:33)
[2023-11-18 19:39] VITALS: RESP 16; TEMP 98
[2023-11-18 20:07] VITALS: BP 127/62; PULSE 82
== END 2023-11-18 20:30 | disposition home or self-care (01) ==
LOC: FINFUSION 19:13 → FM/S 19:18 → FINFUSION 20:30
PROVIDERS: ATTEND Internal Medicine Infectious Disease
DX: M86.9 Osteomyelitis, unspecified (principal); L03.032 Cellulitis of left toe; L08.9 Local infection of the skin and subcutaneous tissue, unspecified
CPT/HCPCS: 96365

== ENCOUNTER 2023-11-20 19:54 | Day surgery (SDC) | payer OTHER ==
[2023-11-20] MEDS: CEFTRIAXONE 2 GM in DEXTROSE 5%-WATER 100 ML IVPB ONE (20:15)
[2023-11-20 20:30] VITALS: RESP 18; TEMP 98
[2023-11-20 20:53] VITALS: BP 130/79; PULSE 92
== END 2023-11-20 20:54 | disposition home or self-care (01) ==
LOC: FINFUSION 19:54 → FM/S 19:55 → FINFUSION 20:54
PROVIDERS: ATTEND Internal Medicine Infectious Disease
DX: M86.9 Osteomyelitis, unspecified (principal); L03.032 Cellulitis of left toe; L08.89 Other specified local infections of the skin and subcutaneous tissue
CPT/HCPCS: 96365

== ENCOUNTER 2023-11-21 20:25 | Day surgery (SDC) | payer OTHER ==
[2023-11-21] MEDS: CEFTRIAXONE 2 GM in DEXTROSE 5%-WATER 100 ML IVPB ONE (20:52)
[2023-11-21 21:01] VITALS: RESP 18; TEMP 98
[2023-11-21 21:15] VITALS: BP 122/71; PULSE 68
== END 2023-11-21 21:00 | disposition home or self-care (01) ==
LOC: FINFUSION 20:25 → FM/S 20:27 → FINFUSION 21:00
PROVIDERS: ATTEND Internal Medicine Infectious Disease
DX: M86.9 Osteomyelitis, unspecified (principal); L03.032 Cellulitis of left toe; L08.89 Other specified local infections of the skin and subcutaneous tissue
CPT/HCPCS: 96365

== ENCOUNTER 2023-11-22 20:16 | Day surgery (SDC) | payer OTHER ==
[2023-11-22] MEDS: CEFTRIAXONE 2 GM in DEXTROSE 5%-WATER 100 ML IVPB ONE (20:31)
[2023-11-22 20:42] VITALS: PULSE 70; TEMP 98.7
[2023-11-22 21:35] VITALS: BP 122/71; RESP 20
== END 2023-11-22 21:15 | disposition home or self-care (01) ==
LOC: FINFUSION 20:16 → FM/S 20:19 → FINFUSION 21:15
PROVIDERS: ATTEND Internal Medicine Infectious Disease
DX: M86.9 Osteomyelitis, unspecified (principal); L03.032 Cellulitis of left toe; L08.9 Local infection of the skin and subcutaneous tissue, unspecified
CPT/HCPCS: 96365

== ENCOUNTER 2023-11-23 20:29 | Day surgery (SDC) | payer OTHER ==
[2023-11-23] MEDS: CEFTRIAXONE 2 GM in DEXTROSE 5%-WATER 100 ML IVPB ONE (20:47)
[2023-11-23 21:45] VITALS: BP 136/81; PULSE 75; RESP 16; TEMP 98.6
== END 2023-11-23 21:20 | disposition home or self-care (01) ==
LOC: FM/S 20:29 → FINFUSION 20:29
PROVIDERS: ATTEND Internal Medicine Infectious Disease
DX: M86.9 Osteomyelitis, unspecified (principal); L03.032 Cellulitis of left toe; L08.9 Local infection of the skin and subcutaneous tissue, unspecified
CPT/HCPCS: 96365

== ENCOUNTER 2023-11-25 19:24 | Day surgery (SDC) | payer OTHER ==
[2023-11-25] MEDS: CEFTRIAXONE 2 GM in DEXTROSE 5%-WATER 100 ML IVPB ONE (19:57)
[2023-11-25 20:33] VITALS: BP 132/77; PULSE 81; RESP 18
== END 2023-11-25 20:26 | disposition home or self-care (01) ==
LOC: FM/S 19:24 → FINFUSION 19:24
PROVIDERS: ATTEND Internal Medicine Infectious Disease
DX: M86.9 Osteomyelitis, unspecified (principal); L03.032 Cellulitis of left toe; L08.9 Local infection of the skin and subcutaneous tissue, unspecified
CPT/HCPCS: 96365

== ENCOUNTER 2023-11-27 20:36 | Day surgery (SDC) | payer OTHER ==
[2023-11-27] MEDS: CEFTRIAXONE 2 GM in DEXTROSE 5%-WATER 100 ML IVPB ONE (20:55)
[2023-11-27 20:59] VITALS: TEMP 98
[2023-11-27 21:27] VITALS: BP 122/78; PULSE 84; RESP 20
== END 2023-11-27 21:31 | disposition home or self-care (01) ==
LOC: FINFUSION 20:36 → FM/S 20:37 → FINFUSION 21:31
PROVIDERS: ATTEND Internal Medicine Infectious Disease
DX: M86.9 Osteomyelitis, unspecified (principal); L03.032 Cellulitis of left toe; L08.9 Local infection of the skin and subcutaneous tissue, unspecified
CPT/HCPCS: 96365

== ENCOUNTER 2023-11-29 20:23 | Day surgery (SDC) | payer OTHER ==
[2023-11-29] MEDS: CEFTRIAXONE 2 GM in DEXTROSE 5%-WATER 100 ML IVPB ONE (20:37)
[2023-11-29 20:43] VITALS: RESP 18; TEMP 98.8
[2023-11-29 21:08] VITALS: BP 131/71; PULSE 93
== END 2023-11-29 21:09 | disposition home or self-care (01) ==
LOC: FM/S 20:23 → FINFUSION 20:23
PROVIDERS: ATTEND Internal Medicine Infectious Disease
DX: M86.9 Osteomyelitis, unspecified (principal); L03.032 Cellulitis of left toe; L08.89 Other specified local infections of the skin and subcutaneous tissue
CPT/HCPCS: 96365

== ENCOUNTER 2023-12-01 20:12 | Day surgery (SDC) | payer OTHER ==
[2023-12-01] MEDS: CEFTRIAXONE 2 GM in DEXTROSE 5%-WATER 100 ML IVPB ONE (20:55)
[2023-12-01 21:44] VITALS: BP 131/83; PULSE 72; RESP 16; TEMP 97.9
== END 2023-12-01 21:45 | disposition home or self-care (01) ==
LOC: FINFUSION 20:12 → FM/S 20:17 → FINFUSION 21:45
PROVIDERS: ATTEND Internal Medicine Infectious Disease
PROC: 3E033GC Introduction of Other Therapeutic Substance into Peripheral Vein, Percutaneous Approach (ICD-10-PCS; principal; 2023-12-01)
DX: M86.9 Osteomyelitis, unspecified (principal); L03.032 Cellulitis of left toe; L08.9 Local infection of the skin and subcutaneous tissue, unspecified
CPT/HCPCS: 96365

== ENCOUNTER 2023-12-03 20:07 | Day surgery (SDC) | payer OTHER ==
[2023-12-03] MEDS: CEFTRIAXONE 2 GM in DEXTROSE 5%-WATER 100 ML IVPB ONE (20:23)
[2023-12-03 20:29] VITALS: RESP 18; TEMP 98.6
[2023-12-03 21:05] VITALS: BP 130/76; PULSE 77
== END 2023-12-03 21:05 | disposition home or self-care (01) ==
LOC: FINFUSION 20:07 → FM/S 20:08 → FINFUSION 21:05
PROVIDERS: ATTEND Internal Medicine Infectious Disease
DX: M86.9 Osteomyelitis, unspecified (principal); L03.032 Cellulitis of left toe; L08.9 Local infection of the skin and subcutaneous tissue, unspecified
CPT/HCPCS: 96365

== ENCOUNTER 2023-12-31 19:27 | Inpatient (IN) | payer OTHER ==
[2023-12-31 21:22] LABS: BASO % 0.2 % (0-2.0); EOS % 2.5 % (0-4.5); HEMATOCRIT 37.2 % (35.4-49); HEMOGLOBIN 12.5 GM/dL (11.7-16.9); LYMPH % 52.6 % (8-40); MCH 27.8 pg (25.7-33.7); MCHC 33.5 g/dl (32.0-35.9); MEAN CELL VOLUME 82.9 fl (80-96); MEAN PLT VOLUME 8.9 fl (7.5-11.1); MONO % 7.5 % (3.8-10.2); NEUT % 37.2 % (42.8-82.8); PLATELET COUNT 229 10^3/uL (134-434); RBC 4.49 M/mm3 (4.00-5.60); RDW 14.4 % (11.9-15.9)
[2023-12-31 21:35] LABS: ALBUMIN 3.9 g/dl (3.4-5.0); BLOOD UREA NITROGEN 16.4 mg/dL (7-18); CALCIUM 9.3 mg/dL (8.5-10.1)
[2023-12-31 21:39] LABS: CREATININE 0.8 mg/dL (0.55-1.3)
[2023-12-31 21:40] LABS: BILIRUBIN,TOTAL 0.3 mg/dL (0.2-1); TOT PROT 7.3 g/dl (6.4-8.2)
[2023-12-31 22:03] LABS: ERYTHROCYTE SEDIMENTATION RATE 11 mm/hr (0-10)
[2024-01-01 00:43] VITALS: BMI 31.4
[2024-01-01] MEDS ORDERED: INSULIN (NOVOLOG) ASPART 100 UNITS/ML 10ML VIAL ONE ×3 (06:13→17:24)
[2024-01-01] MEDS: INSULIN ASPART SLIDING SCALE (NOVOLOG) 1 VIAL SQ SCH (06:30)
[2024-01-01 06:44] LABS: HEMATOCRIT 37.1 % (35.4-49); HEMOGLOBIN 12.6 GM/dL (11.7-16.9); MCH 28.2 pg (25.7-33.7); MCHC 33.9 g/dl (32.0-35.9); MEAN CELL VOLUME 83.3 fl (80-96); MEAN PLT VOLUME 9.3 fl (7.5-11.1); PLATELET COUNT 209 10^3/uL (134-434); RBC 4.46 M/mm3 (4.00-5.60); RDW 14.3 % (11.9-15.9); WHITE BLOOD COUNT 5.3 K/mm3 (4.0-10.0)
[2024-01-01 07:03] LABS: INR 0.96 (0.83-1.09); PROTHROMBIN TIME (PATIENT) 10.9 SEC (9.7-13.0)
[2024-01-01 07:08] LABS: CALCIUM 8.9 mg/dL (8.5-10.1)
[2024-01-01 08:25] LABS: POTASSIUM 3.9 mmol/L (3.5-5.1)
[2024-01-01 08:27] LABS: BLOOD UREA NITROGEN 19.6 mg/dL (7-18)
[2024-01-01 08:30] LABS: CREATININE 0.7 mg/dL (0.55-1.3)
[2024-01-01 09:15] LABS: ANISOCYTOSIS 0; MACROCYTOSIS 0
[2024-01-01 09:18] LABS: PLATELET ESTIMATE ADEQUATE
[2024-01-01] MEDS: CEFTRIAXONE 2 GM in SODIUM CHLORIDE 100 ML IVPB SCH (15:55)
[2024-01-01] MEDS: VANCOMYCIN PREMIX 1.5 GM 1,500 MG/300 ML BAG IVPB SCH (18:41)
[2024-01-02] MEDS ORDERED: GENTAMICIN SO4 80 MG/2 ML VIAL ONE (07:10)
[2024-01-02] MEDS ORDERED: LIDOCAINE HCL 1%, 10 MG/ML (20ML VIAL) ONE (07:10)
[2024-01-02] MEDS ORDERED: BUPIVACAINE HCL/PF 0.5% (5MG/ML) 10 ML VIAL ONE (07:10)
[2024-01-02] MEDS ORDERED: INSULIN (NOVOLOG) ASPART 100 UNITS/ML 10ML VIAL ONE ×2 (11:59→17:06)
[2024-01-02] MEDS: INSULIN (LEVEMIR) 100 UNITS/ML UNITS SQ SCH (23:07)
[2024-01-02 23:27] VITALS: TEMP 98.2
[2024-01-03] MEDS ORDERED: INSULIN (NOVOLOG) ASPART 100 UNITS/ML 10ML VIAL ONE ×2 (05:55→06:10)
[2024-01-03] MEDS: INSULIN (LEVEMIR) 100 UNITS/ML UNITS SQ SCH (06:11)
[2024-01-03 07:06] VITALS: BP 140/90; PULSE 69; RESP 18
== END 2024-01-03 10:46 | disposition home or self-care (01) | DRG 197 ==
LOC: JER 19:27 → JERBED 21:55 → J7W 23:57
PROVIDERS: ADMIT Internal Medicine; ATTEND Family Medicine
DX: E11.52 Type 2 diabetes mellitus with diabetic peripheral angiopathy with gangrene (principal); I96 Gangrene, not elsewhere classified; F11.90 Opioid use, unspecified, uncomplicated; E11.65 Type 2 diabetes mellitus with hyperglycemia; E11.621 Type 2 diabetes mellitus with foot ulcer; E11.40 Type 2 diabetes mellitus with diabetic neuropathy, unspecified; L97.528 Non-pressure chronic ulcer of other part of left foot with other specified severity; L03.032 Cellulitis of left toe; Z89.421 Acquired absence of other right toe(s); Z91.199 Patient's noncompliance with other medical treatment and regimen due to unspecified reason
CPT/HCPCS: 36415; 73630-TC-LT; 80048; 80053; 82962; 83735; 85025; 85610; 85651; 86140; 86850; 86900; 86901; 87040; 93005; 93010; 99285-25

== ENCOUNTER 2025-05-27 13:19 | Day surgery (SDC) | payer OTHER ==
[2025-05-27] MEDS: DALBAVANCIN HCL 1,500 MG in DEXTROSE 5%-WATER - 500 ML IVPB ONE (13:50)
[2025-05-27 14:44] VITALS: BP 124/80; PULSE 78; RESP 16; TEMP 98.3
== END 2025-05-27 14:52 | disposition home or self-care (01) ==
LOC: FINJECTION 13:19 → FM/S 13:20 → FINJECTION 14:52
PROVIDERS: ATTEND Internal Medicine Infectious Disease
DX: M86.9 Osteomyelitis, unspecified (principal)
CPT/HCPCS: 96365; J0875